=== PATIENT | female | born 1945 | race African-American/Black ===

== ENCOUNTER 2018-01-21 21:29 | Emergency (ER) | payer BC, OTHER ==
[2018-01-21 23:11] LABS: ADD MAN DIFF? NO
[2018-01-21 23:13] LABS: BASO # 0.1 x10^3/uL (0.0-0.2); BASO % 1 % (0-3); EOS % 0 % (0-3); LYMPH # 1.5 x10^3/uL (1.0-4.8); LYMPH % 12 % (24-48); MEAN CORPUSCULAR HEMOGLOBIN 26 pg (25-35); MEAN CORPUSCULAR HGB CONC 33 g/dL (31-37); MEAN CORPUSCULAR VOLUME 78 fL (79-100); MONO # 0.4 x10^3/uL (0.0-1.1); MONO % 4 % (0-9); NEUT # 9.9 x10^3uL (1.8-7.7); NEUT % 83 % (31-73); PLATELET COUNT 383 x10^3/uL (140-400); RED BLOOD COUNT 4.97 x10^6/uL (3.50-5.40); RED CELL DISTRIBUTION WIDTH 14.6 % (11.5-14.5)
[2018-01-21] MEDS ORDERED: 0.9 % SODIUM CHLORIDE 10 ML DISP.SYRIN. IV (23:15)
[2018-01-21 23:26] LABS: ANION GAP 12 (6-14); BLOOD UREA NITROGEN 11 mg/dL (7-20); CALCIUM 9.3 mg/dL (8.5-10.1); CARBON DIOXIDE 25 mmol/L (21-32); CHLORIDE 101 mmol/L (98-107); CREATININE 1.1 mg/dL (0.6-1.0); GFR 59.1; GLUCOSE 176 mg/dL (70-99); POTASSIUM 3.2 mmol/L (3.5-5.1); SODIUM 138 mmol/L (136-145)
[2018-01-21] MEDS: IV NORMAL SALINE 1000ML BAG 500 ML IV (23:26)
[2018-01-21 23:30] LABS: ALBUMIN 3.6 g/dL (3.4-5.0); ALK PHOS 145 U/L (46-116); ALT (SGPT) 11 U/L (14-59); AST (SGOT) 11 U/L (15-37); DIRECT BILIRUBIN < 0.1 mg/dL (0.0-0.2); LIPASE 41 U/L (73-393); TOTAL BILIRUBIN 0.4 mg/dL (0.2-1.0); TOTAL PROTEIN 8.5 g/dL (6.4-8.2)
[2018-01-21] MEDS: IOHEXOL 300 MG/ML 100ML VIAL. IV (23:41)
[2018-01-21] MEDS ORDERED: CONTRAST GIVEN MC (23:45)
[2018-01-22 00:04] LABS: BILIRUBIN,URINE NEGATIVE (NEG); CLARITY,URINE CLOUDY; COLOR,URINE YELLOW; GLUCOSE,URINE NEGATIVE (NEG); NITRITE,URINE NEGATIVE (NEG); PH,URINE 7.5; PROTEIN,URINE NEGATIVE (NEG-TRACE); UROBILINOGEN,URINE 0.2 mg/dL (0.2 mg/dL)
[2018-01-22 00:36] LABS: AMORPHOUS SEDIMENT,UR PRESENT /HPF; BACTERIA,URINE FEW /HPF (0-FEW); RBC,URINE OCC /HPF (0-2); SQUAMOUS EPITHELIAL CELL,UR FEW /LPF
[2018-01-22 00:37] LABS: GRANULAR CASTS,URINE FEW /HPF; HYALINE CASTS, URINE FEW /HPF
== END 2018-01-22 00:51 | disposition home or self-care (01) ==
LOC: ER 01-22 00:51
DX: R10.32 Left lower quadrant pain (principal); R10.31 Right lower quadrant pain; I10 Essential (primary) hypertension; M19.90 Unspecified osteoarthritis, unspecified site; R19.7 Diarrhea, unspecified; Z90.49 Acquired absence of other specified parts of digestive tract; Z88.8 Allergy status to other drugs, medicaments and biological substances; Z91.040 Latex allergy status
CPT/HCPCS: 36415; 74177; 80048; 80076; 81001; 83690; 85025; 99285-25; J7030; Q9967

== ENCOUNTER 2019-05-25 17:01 | Emergency (ER) | payer MEDICARE, OTHER ==
[~2019-05-25] VITALS: Ht 162.6 cm; Wt 68.0 kg
[~2019-05-25 17:01] MED LIST: AMLO2.5T5 PO; ASPI-612 PO; BACL10TA PO; BISO1TAB8 PO; CARV25TA2 PO; CIPR500T PO; CLON1PAT TD; DOXA8TAB59 PO; HYDR-2765 PO; MELO7.5T29 PO; METR500T PO; OXYB5TAB7 PO; POTA10TA31 PO; TRIA1CAP3 PO
--- NOTE | 2019-05-25 17:20 | PHYS DOC ---
Past Medical History Past Medical History: Arthritis, Hypertension Past Surgical History: Cholecystectomy, Other Additional Past Surgical Histo: ectopic Alcohol Use: None Drug Use: None Adult General Chief Complaint Chief Complaint: DIZZY/LIGHT HEADED HPI HPI Patient is a 73-year-old female who presents from surgical Center with report of elevated blood pressure. Patient was scheduled to have surgery on her retina today; however, when they were unable to bring her blood pressure down from the 200s systolic, surgery was canceled and patient was instructed to come to the emergency room to further address the blood pressure. Patient denies any chest pain, shortness of breath or headache. She does indicate that she feels "a little hazy", but was given a dose of Versed along with labetalol while at the surgery center.[] Review of Systems Review of Systems Constitutional: Denies fever or chills [] Eyes: Denies change in visual acuity, redness, or eye pain [] Respiratory: Denies cough or shortness of breath [] Cardiovascular: No additional information not addressed in HPI [] Neurologic: Denies headache, focal weakness or sensory changes [] Current Medications Current Medications Current Medications Medications (Trade) Dose Ordered Sig/Bertin Start Time Stop Time Status Last Admin Dose Admin Clonidine HCl (Catapres) 0.2 mg 1X ONCE 05/25/19 17:30 05/25/19 17:31 DC 05/25/19 17:29 0.2 MG Allergies Allergies Allergies Coded Allergies Type Severity Reaction Last Updated Verified Latex, Natural Rubber Allergy Severe hives 05/08/14 Yes amlodipine Allergy Intermediate Nausea 10/30/15 Yes losartan Adverse Reaction Intermediate Nausea 10/30/15 Yes Physical Exam Physical Exam Constitutional: Well developed, well nourished, no acute distress, non-toxic appearance. [] Eyes: PERRLA, EOMI, conjunctiva normal, no discharge. [] Neck: Normal range of motion, no tenderness, supple, no stridor. [] Cardiovascular: Regular rate and rhythm[] Lungs & Thorax: Bilateral breath sounds clear to auscultation [] Neurologic: Alert and oriented X 3, no focal deficits noted. [] Current Patient Data Vital Signs Vital Signs Date Time Temp Pulse Resp B/P (MAP) Pulse Ox O2 Delivery O2 Flow Rate FiO2 05/25/19 18:37 62 16 100 05/25/19 17:29 221/95 05/25/19 17:20 97.9 Room Air 97.9 EKG EKG [] Radiology/Procedures Radiology/Procedures [] Course & Med Decision Making Course & Med Decision Making Pertinent Labs and Imaging studies reviewed. (See chart for details) [] Dragon Disclaimer Dragon Disclaimer This electronic medical record was generated, in whole or in part, using a voice recognition dictation system. Departure Departure Impression: Primary Impression: Hypertension Disposition: HOME, SELF-CARE Condition: STABLE Referrals: EDI SANDOVAL D.O. (PCP) Patient Instructions: Hypertension Problem Qualifiers Primary Impression: Hypertension Hypertension type: essential hypertension Qualified Codes: I10 - Essential (primary) hypertension DAISY EASLEY Jr. DO May 25, 2019 17:20
[2019-05-25] MEDS ORDERED: cloNIDine HCL 0.1 MG TABLET PO ONE (17:30)
[2019-05-25 18:37] VITALS: BP 147/67
== END 2019-05-25 18:43 | disposition home or self-care (01) ==
LOC: ER 17:01
DX: I10 Essential (primary) hypertension (principal); Z91.040 Latex allergy status; Z88.8 Allergy status to other drugs, medicaments and biological substances
CPT/HCPCS: 99282

== ENCOUNTER 2021-06-26 12:52 | Inpatient (IN) | payer MEDICARE ==
[~2021-06-26] VITALS: Ht 163.8 cm; Wt 68.5 kg
[~2021-06-26 12:52] MED LIST changes: -ASPI-612 PO; +ASPI-886 PO; -CIPR500T PO; +CIPR500T2 PO; +OXYB5TAB10 PO; -OXYB5TAB7 PO
--- NOTE | 2021-06-26 13:23 | ED.ADGEN ---
Past Medical History Past Medical History: Arthritis, Hypertension Past Surgical History: Cholecystectomy, Other Additional Past Surgical Histo: ectopic Smoking Status: Current Every Day Smoker Alcohol Use: None Drug Use: None General Adult EDM: Chief Complaint: NAUSEA/VOMITING/DIARRHEA HPI: HPI: Patient is a 76-year-old female who arrives via EMS after experiencing nausea and vomiting with diarrhea which began at 430 this morning. Patient reports she ate a piece of pizza at midnight and at 430 this morning she had an abrupt onset of nausea with vomiting and has had continued episodes since that time. Patient reports in addition to her vomiting she is also had multiple bouts of diarrhea. Patient states currently she is having some nausea however she is not had any abdominal pain at rest. She does report to fevers at home however she has not taken her temperature. Patient denies any known sick contacts. Additionally she denies any history of chest pain or shortness of air. She further denies any dysuria. She is awake, alert and uncomfortable appearing. Review of Systems: Review of Systems: Constitutional: Reports fever or chills. [] Eyes: Denies change in visual acuity. [] HENT: Denies nasal congestion or sore throat. [] Respiratory: Denies cough or shortness of breath. [] Cardiovascular: Denies chest pain or edema. [] GI: Reports nausea, vomiting and diarrhea. Denies abdominal pain, bloody stools. [] : Denies dysuria. [] Musculoskeletal: Denies back pain or joint pain. [] Integument: Denies rash. [] Neurologic: Denies headache, focal weakness or sensory changes. [] Endocrine: Denies polyuria or polydipsia. [] Lymphatic: Denies swollen glands. [] Psychiatric: Denies depression or anxiety. [] Current Medications: Current Medications Medications (Trade) Dose Ordered Sig/Bertin Start Time Stop Time Status Last Admin Dose Admin Ondansetron HCl (Zofran) 4 mg PRN Q8HRS PRN 06/26/21 15:15 06/27/21 15:14 Sodium Chloride 1,000 ml @ 1,000 mls/hr 1X ONCE 06/26/21 13:30 06/26/21 14:29 DC 06/26/21 13:30 1,000 MLS/HR Allergies: Allergies: Allergies Coded Allergies Type Severity Reaction Last Updated Verified Latex, Natural Rubber Allergy Severe hives 8/26/14 Yes amlodipine Allergy Intermediate Nausea 10/30/15 Yes losartan Adverse Reaction Intermediate Nausea 10/30/15 Yes Physical Exam: PE: Constitutional: Uncomfortable appearing. Well developed, well nourished, non- toxic appearance. [] HENT: Normocephalic, atraumatic, bilateral external ears normal, oropharynx moist, no oral exudates, nose normal. [] Eyes: PERRLA, EOMI, conjunctiva normal, no discharge. [] Neck: Normal range of motion, no tenderness, supple, no stridor. [] Cardiovascular:Heart rate regular rhythm, no murmur [] Lungs & Thorax: Bilateral breath sounds clear to auscultation [] Abdomen: Bowel sounds normal, soft, no tenderness, no masses, no pulsatile masses. [] Skin: Warm, dry, no erythema, no rash. [] Back: No tenderness, no CVA tenderness. [] Extremities: No tenderness, no cyanosis, no clubbing, ROM intact, no edema. [] Neurologic: Alert and oriented X 3, normal motor function, normal sensory funct ion, no focal deficits noted. [] Psychologic: Affect normal, judgement normal, mood normal. [] Current Patient Data: Labs: Laboratory Tests Test 06/26/21 13:38 06/26/21 15:05 White Blood Count 9.4 x10^3/uL (4.0-11.0) Red Blood Count 5.30 x10^6/uL (3.50-5.40) Hemoglobin 14.3 g/dL (12.0-15.5) Hematocrit 43.3 % (36.0-47.0) Mean Corpuscular Volume 82 fL (79-100) Mean Corpuscular Hemoglobin 27 pg (25-35) Mean Corpuscular Hemoglobin Concent 33 g/dL (31-37) Red Cell Distribution Width 15.0 % (11.5-14.5) H Platelet Count 296 x10^3/uL (140-400) Neutrophils (%) (Auto) 86 % (31-73) H Lymphocytes (%) (Auto) 11 % (24-48) L Monocytes (%) (Auto) 2 % (0-9) Eosinophils (%) (Auto) 0 % (0-3) Basophils (%) (Auto) 0 % (0-3) Neutrophils # (Auto) 8.1 x10^3/uL (1.8-7.7) H Lymphocytes # (Auto) 1.1 x10^3/uL (1.0-4.8) Monocytes # (Auto) 0.2 x10^3/uL (0.0-1.1) Eosinophils # (Auto) 0.0 x10^3/uL (0.0-0.7) Basophils # (Auto) 0.0 x10^3/uL (0.0-0.2) Sodium Level 134 mmol/L (136-145) L Potassium Level 3.6 mmol/L (3.5-5.1) Chloride Level 97 mmol/L (98-107) L Carbon Dioxide Level 21 mmol/L (21-32) Anion Gap 16 (6-14) H Blood Urea Nitrogen 12 mg/dL (7-20) Creatinine 1.1 mg/dL (0.6-1.0) H Estimated GFR (Cockcroft-Gault) 58.4 BUN/Creatinine Ratio 11 (6-20) Glucose Level 160 mg/dL (70-99) H Calcium Level 9.3 mg/dL (8.5-10.1) Total Bilirubin 0.9 mg/dL (0.2-1.0) Aspartate Amino Transferase (AST) 16 U/L (15-37) Alanine Aminotransferase (ALT) 19 U/L (14-59) Alkaline Phosphatase 141 U/L (46-116) H Troponin I Quantitative 0.021 ng/mL (0.000-0.055) Total Protein 8.7 g/dL (6.4-8.2) H Albumin 4.1 g/dL (3.4-5.0) Albumin/Globulin Ratio 0.9 (1.0-1.7) L Urine Collection Type Unknown Urine Color Yellow Urine Clarity Clear Urine pH 7.5 (<5.0-8.0) Urine Specific [place] 1.010 (1.000-1.030) Urine Protein 100 mg/dL (NEG-TRACE) Urine Glucose (UA) 100 mg/dL (NEG) Urine Ketones (Stick) 15 mg/dL (NEG) Urine Blood Small (NEG) Urine Nitrite Negative (NEG) Urine Bilirubin Negative (NEG) Urine Urobilinogen Dipstick 0.2 mg/dL (0.2 mg/dL) Urine Leukocyte Esterase Negative (NEG) Urine RBC 20-40 /HPF (0-2) Urine WBC 1-4 /HPF (0-4) Urine Squamous Epithelial Cells Mod /LPF Urine Bacteria 0 /HPF (0-FEW) Urine Mucus Slight /LPF Laboratory Tests 06/26/21 13:38 Laboratory Tests 06/26/21 13:38 Vital Signs: Vital Signs Date Time Temp Pulse Resp B/P (MAP) Pulse Ox O2 Delivery O2 Flow Rate FiO2 06/26/21 13:07 97.9 74 20 211/102 (138) 99 Room Air 97.9 EKG: EKG: There areEKG was obtained at 1353 hrs. reveals a normal sinus rhythm with a ventricular rate of 71 bpm. What appeared to be ST/T wave changes of the anterior leads without elevation that may otherwise denote an acute STEMI. [] Heart Score: C/O Chest Pain: No HEART Score for Chest Pain: HEART Score for Chest Pain Response (Comments) Value History Slighlty/Non-Suspicious 0 ECG Normal 0 Age > 65 2 Risk Factors 1 or 2 Risk Factors 1 Troponin >1-<3x Normal Limit 1 Total 4 Risk Factors: Risk Factors: DM, Current or recent (<one month) smoker, HTN, HLP, family history of CAD, obesity. Risk Scores: Score 0 - 3: 2.5% MACE over next 6 weeks - Discharge Home Score 4 - 6: 20.3% MACE over next 6 weeks - Admit for Clinical Observation Score 7 - 10: 72.7% MACE over next 6 weeks - Early Invasive Strategies Radiology/Procedures: Radiology/Procedures: [] Impression: [facility] [address] [place], [place] [id number] IMAGING REPORT Signed PATIENT: ELVIE CALVO ACCOUNT: [id number] : 1945 LOCATION: ER AGE: 76 SEX: F EXAM STATUS: PRE ER ORD. PHYSICIAN: BERNABE ROLLE DO REASON: Nausea and vomiting PROCEDURE: CHEST AP ONLY AP chest. HISTORY: Nausea and vomiting. AP view was taken of the chest. There is arthritis in both shoulders. Lungs are free of infiltrates. There are calcified granulomas on the right. Heart is normal in size. There is no effusion. IMPRESSION: 1. No acute chest disease. Electronically signed by: Anuj Jang MD (06/26/2021 1:42 PM) [facility] DICTATED and SIGNED BY: ANUJ JANG MD DATE: 06/26/21 [id number] 0 Course & Med Decision Making: Course & Med Decision Making Pertinent Labs and Imaging studies reviewed. (See chart for details) [] Dragon Disclaimer: Dragon Disclaimer: This electronic medical record was generated, in whole or in part, using a voice recognition dictation system. Departure Departure Impression: Primary Impression: Gastroenteritis Additional Impression: Dehydration Disposition: ADMITTED INPATIENT Admitting Physician: HIMS Condition: STABLE Referrals: EDI SANDOVAL D.O. (PCP) Problem Qualifiers BERNABE ROLLE DO Jun 26, 2021 13:22
[2021-06-26] MEDS ORDERED: ONDANSETRON PF 4 MG/2 ML VIAL. IVP ONE (13:30)
[2021-06-26] MEDS ORDERED: IV NORMAL SALINE 1000ML BAG 1,000 ML IV ONE (13:30)
--- NOTE | 2021-06-26 13:44 | RAD ---
AP chest. HISTORY: Nausea and vomiting. AP view was taken of the chest. There is arthritis in both shoulders. L ungs are free of infiltrates. There are calcified granulomas on the right. Heart is normal in size. T here is no effusion. IMPRESSION: 1. No acute chest disease. Electronically signed by: Anuj Jang MD (06/26/2021 1:42 PM) [facility]
[2021-06-26 13:55] LABS: BASO % 0 % (0-3); EOS % 0 % (0-3); HEMATOCRIT 43.3 % (36.0-47.0); HEMOGLOBIN 14.3 g/dL (12.0-15.5); LYMPH # 1.1 x10^3/uL (1.0-4.8); LYMPH % 11 % (24-48); MEAN CORPUSCULAR HEMOGLOBIN 27 pg (25-35); MEAN CORPUSCULAR HGB CONC 33 g/dL (31-37); MEAN CORPUSCULAR VOLUME 82 fL (79-100); MONO # 0.2 x10^3/uL (0.0-1.1); MONO % 2 % (0-9); NEUT # 8.1 x10^3/uL (1.8-7.7); NEUT % 86 % (31-73); PLATELET COUNT 296 x10^3/uL (140-400); WHITE BLOOD COUNT 9.4 x10^3/uL (4.0-11.0)
[2021-06-26 14:00] LABS: CALCIUM 9.3 mg/dL (8.5-10.1); CREATININE 1.1 mg/dL (0.6-1.0); GFR 58.4; POTASSIUM 3.6 mmol/L (3.5-5.1)
[2021-06-26 14:06] LABS: ALBUMIN 4.1 g/dL (3.4-5.0); ALBUMIN/GLOBULIN RATIO 0.9 (1.0-1.7); TOTAL BILIRUBIN 0.9 mg/dL (0.2-1.0); TOTAL PROTEIN 8.7 g/dL (6.4-8.2)
--- NOTE | 2021-06-26 14:29 | EKG ---
[facility] [address] [place] [address] Test Date: 2021-06-26 Test Time: 13:53:59 Pat Name: ELVIE CALVO Department: Room: Gender: F [employer]: : 1945 Requested By: BERNABE ROLLE Order Number: [id number] Reading MD: Tevin Sales Measurements Intervals [place] Rate: 71 P: 90 AL: 160 QRS: 48 QRSD: 100 T: 65 QT: 414 QTc: 455 Interpretive Statements SINUS RHYTHM ST & T ABNORMALITY, CONSIDER ANTEROLATERAL ISCHEMIA OR LEFT VENTRICULAR STRAIN T ABNORMALITY IN ANTERIOR LEADS Electronically Signed On 06-26-2021 15:46:19 CDT by Tevin Sales
[2021-06-26] MEDS ORDERED: ONDANSETRON PF 4 MG/2 ML VIAL. IVP PRN (15:15)
[2021-06-26 15:19] LABS: BILIRUBIN,URINE NEGATIVE (NEG); CLARITY,URINE CLEAR; COLOR,URINE YELLOW; NITRITE,URINE NEGATIVE (NEG); PH,URINE 7.5 (<5.0-8.0); PROTEIN,URINE 100 mg/dL (NEG-TRACE); UROBILINOGEN,URINE 0.2 mg/dL (0.2 mg/dL)
[2021-06-26 15:25] LABS: BACTERIA,URINE 0 /HPF (0-FEW); RBC,URINE 20-40 /HPF (0-2)
[2021-06-26] MEDS ORDERED: hydrALAZINE 20 MG/ML VIAL. IVP PRN (16:30)
[2021-06-26] MEDS ORDERED: hydrALAZINE 20 MG/ML VIAL. ONE (16:30)
[2021-06-26 17:20] VITALS: BP 239/107
[2021-06-26] MEDS ORDERED: HYDR12.58 PO (17:48)
[2021-06-26] MEDS ORDERED: ATOR20TA58 PO (17:48)
[2021-06-26] MEDS ORDERED: DICL75TA PO (17:48)
[2021-06-26] MEDS ORDERED: AMLO-187 PO (17:48)
[2021-06-26] MEDS ORDERED: METH-184 PO (17:48)
[2021-06-26] MEDS ORDERED: ENALAPRILAT 2.5 MG/2 ML VIAL. IVP SCH (18:00)
[2021-06-26] MEDS ORDERED: METOPROLOL IV PUSH 5 MG/5 ML VIAL. IVP ONE (18:00)
[2021-06-26] MEDS ORDERED: ENALAPRILAT 2.5 MG/2 ML VIAL. IVP PRN (18:15)
[2021-06-26 19:00] VITALS: BP 212/106
[2021-06-26] MEDS ORDERED: POTASSIUM CL 20MEQ D5-0.45NACL 1,000 ML IV SCH (20:30)
--- NOTE | 2021-06-26 20:33 | PDOC1 ---
History and Physical Date of Admission Date of Admission DATE: 06/26/21 TIME: 20:29 Identification/Chief Complaint Chief Complaint N an V Source Source: Chart review, Patient History of Present Illness History of Present Illness Ms. Rodriguez is a 76-year-old female admit form ER for Nausea and vomiting and diarrhea. She reports acute symptoms began at 430 this morning, and that she vomited her meds from this AM. She at leftover [employer] pizza at bedtime the ngiht before and hasnt been able to eat anyhting today. she feels a little better after Nausea meds and IV fluid and would like to try jello. no current pain Patient denies any known sick contacts. she has been vaccinated for COVID Past Medical History Cardiovascular: HTN Pulmonary: No pertinent hx CENTRAL NERVOUS SYSTEM: Other GI: No pertinent hx Heme/Onc: No pertinent hx Hepatobiliary: No pertinent hx Psych: No pertinent hx Musculoskeletal: Osteoarthritis Rheumatologic: No pertinent hx Infectious disease: No pertinent hx Renal/: No pertinent hx, Urinary Incontinence Endocrine: No pertinent hx Past Surgical History Past Surgical History: Other Family History Family History: No Significant Social History Smoke: No ALCOHOL: none Drugs: None Current Problem List Problem List Problems Medical Problems: (1) Dehydration Status: Acute (2) Gastroenteritis Status: Acute Current Medications Current Medications Current Medications Ondansetron HCl (Zofran) 4 mg 1X ONCE IVP Last administered on 06/26/21at 14:01; Start 06/26/21 at 13:30; Stop 06/26/21 at 13:31; Status DC Sodium Chloride 1,000 ml @ 1,000 mls/hr 1X ONCE IV Last administered on 06/26/21at 13:30; Start 06/26/21 at 13:30; Stop 06/26/21 at 14:29; Status DC Ondansetron HCl (Zofran) 4 mg PRN Q8HRS PRN IVP NAUSEA/VOMITING; Start 06/26/21 at 15:15; Stop 06/27/21 at 15:14 Hydralazine HCl (Apresoline Inj) 10 mg PRN Q6HRS PRN IVP ELEVATED BP, SEE COMMENTS Last administered on 06/26/21at 16:37; Start 06/26/21 at 16:30 Hydralazine HCl (Apresoline Inj) 20 mg STK-MED ONCE .ROUTE ; Start 06/26/21 at 16:30; Stop 06/26/21 at 16:31; Status DC Enalaprilat (Vasotec Inj) 2.5 mg Q6HRS IVP ; Start 06/26/21 at 18:00; Stop 06/26/21 at 18:03; Status DC Metoprolol Tartrate (Lopressor Vial) 5 mg 1X ONCE IVP Last administered on 06/26/21at 18:09; Start 06/26/21 at 18:00; Stop 06/26/21 at 18:01; Status DC Enalaprilat (Vasotec Inj) 2.5 mg PRN Q6HRS PRN IVP HYPERTENSION; Start 1 at 18:15 Lorazepam (Ativan Inj) 1 mg PRN Q4HRS PRN IVP nausea; Start 06/26/21 at 18:45 Active Scripts Active Reported Hydrochlorothiazide Tablet (Hydrochlorothiazide) 12.5 Mg Tablet 25 Mg PO DAILY Diclofenac Sodium 75 Mg Tablet.dr 1 Tab PO BID Amlodipine Besylate 10 Mg Tablet 10 Mg PO DAILY Tapazole (Methimazole) 10 Mg Tablet 15 Mg PO DAILY Atorvastatin Calcium 20 Mg Tablet 1 Tab PO DAILY Carvedilol 25 Mg Tablet 25 Mg PO BIDWMEALS Aspirin Ec (Aspirin) 81 Mg Tablet.dr 1 Tab PO DAILY Doxazosin Mesylate 8 Mg Tablet 1 Tab PO DAILY Allergies Allergies: Coded Allergies: Latex, Natural Rubber (Verified Allergy, Severe, hives, 05/08/14) amlodipine (Verified Allergy, Intermediate, Nausea, 10/30/15) losartan (Verified Adverse Reaction, Intermediate, Nausea, 10/30/15) ROS General: YES: Chills; No: Night Sweats, Fatigue, Malaise, Appetite, Other PSYCHOLOGICAL ROS: No: Anxiety, Behavioral Disorder, Concentration difficultie, Decreased libido, Depression, Disorientation, Hallucinations, Hostility, Irritablity, Memory difficulties, Mood Swings, Obsessive thoughts, Physical abuse, Sexual abuse, Sleep disturbances, Suicidal ideation, Other Eyes: No Blurry vision, No Decreased vision, No Double vision, No Dry eyes, No Excessive tearing, No Eye Pain, No Itchy Eyes, No Loss of vision, No Photophobia, No Scotomata, No Uses contacts, No Uses glasses, No Other HEENT: No: Heacaches, Visual Changes, Hearing change, Nasal congestion, Nasal discharge, Oral lesions, Sinus pain, Sore Throat, Epistaxis, Sneezing, Snoring, Tinnitus, Vertigo, Vocal changes, Other ENDOCRINE: No: Breast Changes, Galactorrhea, Hair Pattern Changes, Hot Flashes, Malaise/lethargy, Mood Swings, Palpitations, Polydipsia/polyuria, Skin Changes, Temperature Intolerance, Unexpected Weight Changes, Other Breast: No New/Changing Breast Lumps, No Nipple changes, No Nipple discharge, No Other Respiratory: No: Cough, Hemoptysis, Orthopnea, Pleuritic Pain, Shortness of breath, SOB with excertion, Sputum Changes, Stridor, Tachypnea, Wheezing, Other Cardiovascular: No Chest Pain, No Palpitations, No Orthopnea, No Paroxysmal Noc. Dyspnea, No Edema, No Lt Headedness, No Other Gastrointestinal: Yes Nausea, Yes Vomiting, Yes Abdominal Pain, Yes Diarrhea Genitourinary: No Dysuria, No Frequency, No Incontinence, No Hematuria, No Retention, No Discharge, No Urgency, No Pain, No Flank Pain, No Other, No , No , No , No , No , No , No Musculoskeletal: No Gait Disturbance, No Joint Pain, No Joint Stiffness, No Joint Swelling, No Muscle Pain, No Muscular Weakness, No Pain In:, No Swelling In:, No Other Neurological: No Behavorial Changes, No Bowel/Bladder ControlChng, No Confusion, No Dizziness, No Gait Disturbance, No Headaches, No Impaired Coord/balance, No Memory Loss, No Numbness/Tingling, No Seizures, No Speech Problems, No Tremors, No Visual Changes, No Weakness, No Other Skin: Yes Dry Skin; No Eczema, No Hair Changes, No Lumps, No Mole Changes, No Mottling, No Nail Changes, No Pruritus, No Rash, No Skin Lesion Changes, No Other, No Acne Physical Exam General: Alert, Oriented X3, Cooperative, mild distress HEENT: Atraumatic Heart: S1S2 Abdomen: Normal bowel sounds, Soft, No tenderness, No masses, Other Rectal Exam: not examined Extremities: No clubbing, No edema Skin: No rashes, No significant lesion Neuro: Normal speech, Sensation intact, Cranial nerves 3-12 NL Vitals Vitals Vital Signs Date Time Temp Pulse Resp B/P (MAP) Pulse Ox O2 Delivery O2 Flow Rate FiO2 06/26/21 18:09 75 239/107 06/26/21 17:20 98.3 20 98 Room Air 98.3 Labs Labs Laboratory Tests Test 06/26/21 13:38 06/26/21 15:05 White Blood Count 9.4 x10^3/uL (4.0-11.0) Red Blood Count 5.30 x10^6/uL (3.50-5.40) Hemoglobin 14.3 g/dL (12.0-15.5) Hematocrit 43.3 % (36.0-47.0) Mean Corpuscular Volume 82 fL (79-100) Mean Corpuscular Hemoglobin 27 pg (25-35) Mean Corpuscular Hemoglobin Concent 33 g/dL (31-37) Red Cell Distribution Width 15.0 % (11.5-14.5) Platelet Count 296 x10^3/uL (140-400) Neutrophils (%) (Auto) 86 % (31-73) Lymphocytes (%) (Auto) 11 % (24-48) Monocytes (%) (Auto) 2 % (0-9) Eosinophils (%) (Auto) 0 % (0-3) Basophils (%) (Auto) 0 % (0-3) Neutrophils # (Auto) 8.1 x10^3/uL (1.8-7.7) Lymphocytes # (Auto) 1.1 x10^3/uL (1.0-4.8) Monocytes # (Auto) 0.2 x10^3/uL (0.0-1.1) Eosinophils # (Auto) 0.0 x10^3/uL (0.0-0.7) Basophils # (Auto) 0.0 x10^3/uL (0.0-0.2) Sodium Level 134 mmol/L (136-145) Potassium Level 3.6 mmol/L (3.5-5.1) Chloride Level 97 mmol/L (98-107) Carbon Dioxide Level 21 mmol/L (21-32) Anion Gap 16 (6-14) Blood Urea Nitrogen 12 mg/dL (7-20) Creatinine 1.1 mg/dL (0.6-1.0) Estimated GFR (Cockcroft-Gault) 58.4 BUN/Creatinine Ratio 11 (6-20) Glucose Level 160 mg/dL (70-99) Calcium Level 9.3 mg/dL (8.5-10.1) Total Bilirubin 0.9 mg/dL (0.2-1.0) Aspartate Amino Transf (AST/SGOT) 16 U/L (15-37) Alanine Aminotransferase (ALT/SGPT) 19 U/L (14-59) Alkaline Phosphatase 141 U/L (46-116) Troponin I Quantitative 0.021 ng/mL (0.000-0.055) Total Protein 8.7 g/dL (6.4-8.2) Albumin 4.1 g/dL (3.4-5.0) Albumin/Globulin Ratio 0.9 (1.0-1.7) Urine Collection Type Unknown Urine Color Yellow Urine Clarity Clear Urine pH 7.5 (<5.0-8.0) Urine Specific [place] 1.010 (1.000-1.030) Urine Protein 100 mg/dL (NEG-TRACE) Urine Glucose (UA) 100 mg/dL (NEG) Urine Ketones (Stick) 15 mg/dL (NEG) Urine Blood Small (NEG) Urine Nitrite Negative (NEG) Urine Bilirubin Negative (NEG) Urine Urobilinogen Dipstick 0.2 mg/dL (0.2 mg/dL) Urine Leukocyte Esterase Negative (NEG) Urine RBC 20-40 /HPF (0-2) Urine WBC 1-4 /HPF (0-4) Urine Squamous Epithelial Cells Mod /LPF Urine Bacteria 0 /HPF (0-FEW) Urine Mucus Slight /LPF SARS-CoV-2 Antigen (Rapid) Negative (NEGATIVE) Laboratory Tests Test 06/26/21 13:38 06/26/21 15:05 White Blood Count 9.4 x10^3/uL (4.0-11.0) Red Blood Count 5.30 x10^6/uL (3.50-5.40) Hemoglobin 14.3 g/dL (12.0-15.5) Hematocrit 43.3 % (36.0-47.0) Mean Corpuscular Volume 82 fL (79-100) Mean Corpuscular Hemoglobin 27 pg (25-35) Mean Corpuscular Hemoglobin Concent 33 g/dL (31-37) Red Cell Distribution Width 15.0 % (11.5-14.5) Platelet Count 296 x10^3/uL (140-400) Neutrophils (%) (Auto) 86 % (31-73) Lymphocytes (%) (Auto) 11 % (24-48) Monocytes (%) (Auto) 2 % (0-9) Eosinophils (%) (Auto) 0 % (0-3) Basophils (%) (Auto) 0 % (0-3) Neutrophils # (Auto) 8.1 x10^3/uL (1.8-7.7) Lymphocytes # (Auto) 1.1 x10^3/uL (1.0-4.8) Monocytes # (Auto) 0.2 x10^3/uL (0.0-1.1) Eosinophils # (Auto) 0.0 x10^3/uL (0.0-0.7) Basophils # (Auto) 0.0 x10^3/uL (0.0-0.2) Sodium Level 134 mmol/L (136-145) Potassium Level 3.6 mmol/L (3.5-5.1) Chloride Level 97 mmol/L (98-107) Carbon Dioxide Level 21 mmol/L (21-32) Anion Gap 16 (6-14) Blood Urea Nitrogen 12 mg/dL (7-20) Creatinine 1.1 mg/dL (0.6-1.0) Estimated GFR (Cockcroft-Gault) 58.4 BUN/Creatinine Ratio 11 (6-20) Glucose Level 160 mg/dL (70-99) Calcium Level 9.3 mg/dL (8.5-10.1) Total Bilirubin 0.9 mg/dL (0.2-1.0) Aspartate Amino Transf (AST/SGOT) 16 U/L (15-37) Alanine Aminotransferase (ALT/SGPT) 19 U/L (14-59) Alkaline Phosphatase 141 U/L (46-116) Troponin I Quantitative 0.021 ng/mL (0.000-0.055) Total Protein 8.7 g/dL (6.4-8.2) Albumin 4.1 g/dL (3.4-5.0) Albumin/Globulin Ratio 0.9 (1.0-1.7) Urine Collection Type Unknown Urine Color Yellow Urine Clarity Clear Urine pH 7.5 (<5.0-8.0) Urine Specific [place] 1.010 (1.000-1.030) Urine Protein 100 mg/dL (NEG-TRACE) Urine Glucose (UA) 100 mg/dL (NEG) Urine Ketones (Stick) 15 mg/dL (NEG) Urine Blood Small (NEG) Urine Nitrite Negative (NEG) Urine Bilirubin Negative (NEG) Urine Urobilinogen Dipstick 0.2 mg/dL (0.2 mg/dL) Urine Leukocyte Esterase Negative (NEG) Urine RBC 20-40 /HPF (0-2) Urine WBC 1-4 /HPF (0-4) Urine Squamous Epithelial Cells Mod /LPF Urine Bacteria 0 /HPF (0-FEW) Urine Mucus Slight /LPF SARS-CoV-2 Antigen (Rapid) Negative (NEGATIVE) VTE Prophylaxis Ordered VTE Prophylaxis Devices: No VTE Pharmacological Prophylaxi: No Assessment/Plan Assessment/Plan nausea and vomiting and diarrhea, IV fluid support and 2 nausea IV meds ordered acute viral enteritis, or possible food poisoning from [employer] accelerated htn, vomited her home meds, replace IV for PO, try to get control Justifications for Admission Other Justification FIDEL NGUYEN MD Jun 26, 2021 20:33
[2021-06-26] MEDS: METOPROLOL IV PUSH 5 MG/5 ML VIAL. IVP SCH ×2 (23:03→23:54)
[2021-06-26 23:12] VITALS: BP 207/107
[2021-06-27] VITALS (7 sets, daily range): BP systolic 93–199; BP diastolic 42–94
[2021-06-27] MEDS: METOPROLOL IV PUSH 5 MG/5 ML VIAL. IVP SCH ×2 (05:41→12:12)
--- NOTE | 2021-06-27 07:36 | PDOC ---
[employer] PROGRESS NOTE Date of Service DOS: DATE: 06/27/21 TIME: 07:34 Chief Complaint Chief Complaint A/P: nausea and vomiting and diarrhea, IV fluid support and 2 nausea IV meds ordered acute viral enteritis, or possible food poisoning from [employer] accelerated htn, vomited her home meds, replace IV for PO, try to get control GUSTAVO - likely vasomotor nephropathy from dehydration, BP shifts. Will give additional IVF, hydrate, repeat BMP in AM Elevated troponin - likely demand ischemia, however with her atypical symptoms will have cardiac eval FEN - liquid diet PPX - heparin FULL CODE Dispo - inpatient History of Present Illness History of Present Illness Ms. Rodriguez is a 76-year-old female w/ PMHx HTN who is admitted from ER for Nausea and vomiting and diarrhea. She reports acute symptoms began at 430 on 06/26/2021 in the morning, and that she vomited her meds She at leftover [employer] pia at bedtime the night before and hasn't been able to eat anything since. Patient denies any known sick contacts. She has been vaccinated for COVID. BP was elevated with systolic over 210 mmHg was given IV Vasotec and IV metoprolol substitute for her 25 mg carvedilol. She felt a little better after Nausea meds and IV fluid and tried jello but had further nausea. BP low this morning. No further vomiting but not feeling any better. Repeat CR 1.7. Vitals/I&O Vitals/I&O: Vital Signs Date Time Temp Pulse Resp B/P (MAP) Pulse Ox O2 Delivery O2 Flow Rate FiO2 06/27/21 05:41 103 99/54 06/27/21 03:24 99.5 18 97 Room Air 99.5 I & O 06/26/21 06/26/21 06/27/21 15:00 23:00 07:00 Intake Total 240 ml 200 ml Balance 240 ml 200 ml Physical Exam General: Alert, Oriented X3, Cooperative, mild distress Abdomen: Normal bowel sounds, Soft, No tenderness, No masses, Other Extremities: No clubbing, No edema Skin: No rashes, No significant lesion Labs Labs: Laboratory Tests Test 06/26/21 13:38 06/26/21 15:05 White Blood Count 9.4 x10^3/uL (4.0-11.0) Red Blood Count 5.30 x10^6/uL (3.50-5.40) Hemoglobin 14.3 g/dL (12.0-15.5) Hematocrit 43.3 % (36.0-47.0) Mean Corpuscular Volume 82 fL (79-100) Mean Corpuscular Hemoglobin 27 pg (25-35) Mean Corpuscular Hemoglobin Concent 33 g/dL (31-37) Red Cell Distribution Width 15.0 % (11.5-14.5) Platelet Count 296 x10^3/uL (140-400) Neutrophils (%) (Auto) 86 % (31-73) Lymphocytes (%) (Auto) 11 % (24-48) Monocytes (%) (Auto) 2 % (0-9) Eosinophils (%) (Auto) 0 % (0-3) Basophils (%) (Auto) 0 % (0-3) Neutrophils # (Auto) 8.1 x10^3/uL (1.8-7.7) Lymphocytes # (Auto) 1.1 x10^3/uL (1.0-4.8) Monocytes # (Auto) 0.2 x10^3/uL (0.0-1.1) Eosinophils # (Auto) 0.0 x10^3/uL (0.0-0.7) Basophils # (Auto) 0.0 x10^3/uL (0.0-0.2) Sodium Level 134 mmol/L (136-145) Potassium Level 3.6 mmol/L (3.5-5.1) Chloride Level 97 mmol/L (98-107) Carbon Dioxide Level 21 mmol/L (21-32) Anion Gap 16 (6-14) Blood Urea Nitrogen 12 mg/dL (7-20) Creatinine 1.1 mg/dL (0.6-1.0) Estimated GFR (Cockcroft-Gault) 58.4 BUN/Creatinine Ratio 11 (6-20) Glucose Level 160 mg/dL (70-99) Calcium Level 9.3 mg/dL (8.5-10.1) Total Bilirubin 0.9 mg/dL (0.2-1.0) Aspartate Amino Transf (AST/SGOT) 16 U/L (15-37) Alanine Aminotransferase (ALT/SGPT) 19 U/L (14-59) Alkaline Phosphatase 141 U/L (46-116) Troponin I Quantitative 0.021 ng/mL (0.000-0.055) Total Protein 8.7 g/dL (6.4-8.2) Albumin 4.1 g/dL (3.4-5.0) Albumin/Globulin Ratio 0.9 (1.0-1.7) Urine Collection Type Unknown Urine Color Yellow Urine Clarity Clear Urine pH 7.5 (<5.0-8.0) Urine Specific [place] 1.010 (1.000-1.030) Urine Protein 100 mg/dL (NEG-TRACE) Urine Glucose (UA) 100 mg/dL (NEG) Urine Ketones (Stick) 15 mg/dL (NEG) Urine Blood Small (NEG) Urine Nitrite Negative (NEG) Urine Bilirubin Negative (NEG) Urine Urobilinogen Dipstick 0.2 mg/dL (0.2 mg/dL) Urine Leukocyte Esterase Negative (NEG) Urine RBC 20-40 /HPF (0-2) Urine WBC 1-4 /HPF (0-4) Urine Squamous Epithelial Cells Mod /LPF Urine Bacteria 0 /HPF (0-FEW) Urine Mucus Slight /LPF SARS-CoV-2 Antigen (Rapid) Negative (NEGATIVE) Assessment and Plan Assessmemt and Plan Problems Medical Problems: (1) Dehydration Status: Acute (2) Gastroenteritis Status: Acute Comment Review of Relevant I have reviewed the following items prema (where applicable) has been applied. Medications: Current Medications Medications (Trade) Dose Ordered Sig/Bertin Route PRN Reason Start Time Stop Time Status Last Admin Dose Admin Ondansetron HCl (Zofran) 4 mg 1X ONCE IVP 06/26/21 13:30 06/26/21 13:31 DC 06/26/21 14:01 Sodium Chloride 1,000 ml @ 1,000 mls/hr 1X ONCE IV 06/26/21 13:30 06/26/21 14:29 DC 06/26/21 13:30 Hydralazine HCl (Apresoline Inj) 10 mg PRN Q6HRS PRN IVP ELEVATED BP, SEE COMMENTS 06/26/21 16:30 06/26/21 16:37 Metoprolol Tartrate (Lopressor Vial) 5 mg 1X ONCE IVP 06/26/21 18:00 06/26/21 18:01 DC 06/26/21 18:09 Enalaprilat (Vasotec Inj) 2.5 mg PRN Q6HRS PRN IVP HYPERTENSION 06/26/21 18:15 06/26/21 22:59 Lorazepam (Ativan Inj) 1 mg PRN Q4HRS PRN IVP nausea 06/26/21 18:45 06/26/21 22:59 Metoprolol Tartrate (Lopressor Vial) 5 mg Q6HRS IVP 06/26/21 20:15 06/26/21 23:03 Potassium Chloride/Dextrose/ Sod Cl 1,000 ml @ 80 mls/hr [id number] IV 06/26/21 20:30 06/27/21 08:59 06/26/21 22:58 Justifications for Admission Other Justification EDDY MYERS MD Jun 27, 2021 07:36
--- NOTE | 2021-06-27 09:25 | PDOC2 ---
GI CONSULT Date of Service: DATE: 06/27/21 TIME: 09:25 Reason For Consult: n/v/d HPI: HPI: Pleasant 76 y/o female admitted through ER. Went to [facility] Wednesday night and ate leftover/reheated pizza around midnight when she returned home. Awoke at 4:30 a.m. with vomiting which persisted for 5-6 hours. Associated w/ abdominal soreness ("just all over"). No diarrhea. Her neighbor thought it would be safest to get checked out at the hospital. Noted with elevated blood pressure. Feels better now and would like some chicken noodle soup and jello. Denies reflux/heartburn, dysphagia, chronic n/v or abd pain, hematemesis, constipation, hematochezia, melena, or weight loss. Office notes indicate h/o indigestion. EGD and colonoscopy 11/2010 showed H. pylori gastritis and intestinal metaplasia and 3mm adenomatous colon polyp. Notes indicate she felt better after H. pylori treatment. Pt reports she had an EGD and colonoscopy about 5 years ago "in [place]" - says her PCP keeps track of all that. Chart lists h/o cholecystectomy - she does not recall surgery but does recall h/o gallstones. Denies liver, pancreas, and PUD history. She "takes a lot of medicines" - summary list includes ASA and Tapazole. Vaccinated for COVID. PMH: PMH: HTN, arthritis, hyperthyroidism left knee surgery, ?cholecystectomy, thyroid biopsy FH: Family History: Cancer (maternal aunt - colon) Social History: Smoke: <1 pack per day ALCOHOL: rare Drugs: None ROS: GEN: Denies fevers, chills, sweats HEENT: Denies blurred vision, sore throat CV: Denies chest pain RESP: Denies shortness of air, cough GI: Per HPI : Denies hematuria, dysuria ENDO: Denies weight changes NEURO: Denies confusion, dizziness MSK: Denies weakness, joint pain/swelling SKIN: Denies jaundice, pruritus Vitals: Vitals: Vital Signs Date Time Temp Pulse Resp B/P (MAP) Pulse Ox O2 Delivery O2 Flow Rate FiO2 06/27/21 08:00 Room Air 06/27/21 07:00 99.1 98 17 142/80 (100) 98 99.1 Labs: Labs: Laboratory Tests Test 06/26/21 13:38 06/26/21 15:05 White Blood Count 9.4 x10^3/uL (4.0-11.0) Red Blood Count 5.30 x10^6/uL (3.50-5.40) Hemoglobin 14.3 g/dL (12.0-15.5) Hematocrit 43.3 % (36.0-47.0) Mean Corpuscular Volume 82 fL (79-100) Mean Corpuscular Hemoglobin 27 pg (25-35) Mean Corpuscular Hemoglobin Concent 33 g/dL (31-37) Red Cell Distribution Width 15.0 % (11.5-14.5) Platelet Count 296 x10^3/uL (140-400) Neutrophils (%) (Auto) 86 % (31-73) Lymphocytes (%) (Auto) 11 % (24-48) Monocytes (%) (Auto) 2 % (0-9) Eosinophils (%) (Auto) 0 % (0-3) Basophils (%) (Auto) 0 % (0-3) Neutrophils # (Auto) 8.1 x10^3/uL (1.8-7.7) Lymphocytes # (Auto) 1.1 x10^3/uL (1.0-4.8) Monocytes # (Auto) 0.2 x10^3/uL (0.0-1.1) Eosinophils # (Auto) 0.0 x10^3/uL (0.0-0.7) Basophils # (Auto) 0.0 x10^3/uL (0.0-0.2) Sodium Level 134 mmol/L (136-145) Potassium Level 3.6 mmol/L (3.5-5.1) Chloride Level 97 mmol/L (98-107) Carbon Dioxide Level 21 mmol/L (21-32) Anion Gap 16 (6-14) Blood Urea Nitrogen 12 mg/dL (7-20) Creatinine 1.1 mg/dL (0.6-1.0) Estimated GFR (Cockcroft-Gault) 58.4 BUN/Creatinine Ratio 11 (6-20) Glucose Level 160 mg/dL (70-99) Calcium Level 9.3 mg/dL (8.5-10.1) Total Bilirubin 0.9 mg/dL (0.2-1.0) Aspartate Amino Transf (AST/SGOT) 16 U/L (15-37) Alanine Aminotransferase (ALT/SGPT) 19 U/L (14-59) Alkaline Phosphatase 141 U/L (46-116) Troponin I Quantitative 0.021 ng/mL (0.000-0.055) Total Protein 8.7 g/dL (6.4-8.2) Albumin 4.1 g/dL (3.4-5.0) Albumin/Globulin Ratio 0.9 (1.0-1.7) Urine Collection Type Unknown Urine Color Yellow Urine Clarity Clear Urine pH 7.5 (<5.0-8.0) Urine Specific [place] 1.010 (1.000-1.030) Urine Protein 100 mg/dL (NEG-TRACE) Urine Glucose (UA) 100 mg/dL (NEG) Urine Ketones (Stick) 15 mg/dL (NEG) Urine Blood Small (NEG) Urine Nitrite Negative (NEG) Urine Bilirubin Negative (NEG) Urine Urobilinogen Dipstick 0.2 mg/dL (0.2 mg/dL) Urine Leukocyte Esterase Negative (NEG) Urine RBC 20-40 /HPF (0-2) Urine WBC 1-4 /HPF (0-4) Urine Squamous Epithelial Cells Mod /LPF Urine Bacteria 0 /HPF (0-FEW) Urine Mucus Slight /LPF SARS-CoV-2 Antigen (Rapid) Negative (NEGATIVE) Allergies: Coded Allergies: Latex, Natural Rubber (Verified Allergy, Severe, hives, 05/08/14) amlodipine (Verified Adverse Reaction, Intermediate, Nausea, 06/27/21) losartan (Verified Adverse Reaction, Intermediate, Nausea, 10/30/15) Medications: Current Medications Medications (Trade) Dose Ordered Sig/Bertin Route PRN Reason Start Time Stop Time Status Last Admin Dose Admin Ondansetron HCl (Zofran) 4 mg 1X ONCE IVP 06/26/21 13:30 06/26/21 13:31 DC 06/26/21 14:01 Sodium Chloride 1,000 ml @ 1,000 mls/hr 1X ONCE IV 06/26/21 13:30 06/26/21 14:29 DC 06/26/21 13:30 Hydralazine HCl (Apresoline Inj) 10 mg PRN Q6HRS PRN IVP ELEVATED BP, SEE COMMENTS 06/26/21 16:30 06/26/21 16:37 Metoprolol Tartrate (Lopressor Vial) 5 mg 1X ONCE IVP 06/26/21 18:00 06/26/21 18:01 DC 06/26/21 18:09 Enalaprilat (Vasotec Inj) 2.5 mg PRN Q6HRS PRN IVP HYPERTENSION 06/26/21 18:15 06/26/21 22:59 Lorazepam (Ativan Inj) 1 mg PRN Q4HRS PRN IVP nausea 06/26/21 18:45 06/27/21 07:34 DC 06/26/21 22:59 Metoprolol Tartrate (Lopressor Vial) 5 mg Q6HRS IVP 06/26/21 20:15 06/26/21 23:03 Potassium Chloride/Dextrose/ Sod Cl 1,000 ml @ 80 mls/hr [id number] IV 06/26/21 20:30 06/27/21 08:59 DC 06/26/21 22:58 Imaging: Imaging: CXR 06/26 IMPRESSION: 1. No acute chest disease. PE: GEN: NAD HEENT: Atraumatic, PERRL LUNGS: CTAB HEART: RRR ABD: NABS, S/ND/NT EXTREMITY: No edema SKIN: No rashes, no jaundice NEURO/PSYCH: A & O 3 A/P: A/P: N/v, abd discomfort, HTN - improved H/o H. pylori - took treatment CRC screen, h/o adenomatous polyp - can document colonoscopy from 2010 - ?done since Rapid COVID negative -- ?food poisoning - quick improvement of symptoms Okay to advance diet per GI. KRISTA SCRUGGS Jun 27, 2021 09:25
[2021-06-27 10:34] LABS: CALCIUM 8.9 mg/dL (8.5-10.1); CREATININE 1.7 mg/dL (0.6-1.0); GFR 35.4; POTASSIUM 3.5 mmol/L (3.5-5.1)
--- NOTE | 2021-06-27 10:43 | NUR ---
SW following. Discussed with RN, pt from home alone, room air, full liquid diet, rapid COVID-19 negative. GI following. Pt reports feeling better. RN advised no SW needs at this time, anticipates possible discharge home today. SW will continue to follow.
[2021-06-27] MEDS ORDERED: ONDANSETRON PF 4 MG/2 ML VIAL. IVP PRN (11:45)
[2021-06-27] MEDS ORDERED: IV RINGERS,LACTATED 1000ML 1,000 ML IV ONE (11:45)
--- NOTE | 2021-06-27 12:00 | NUR ---
Cardiology consult ordered for elevated trop. Pt also receiving scheduled IV metoprolol. Tele monitor applied per protocol. SR noted at this time. Will continue to monitor.
--- NOTE | 2021-06-27 13:41 | PDOC2 ---
MARS BUSTAMANTE DERMATOLOGY NURSE 06/27/21 1341: CARDIAC CONSULT DATE OF CONSULT Date of Consult DATE: 06/27/21 TIME: 13:28 REASON FOR CONSULT Reason for Consult: elevated troponin, n/v REFERRING PHYSICIAN Referring Physician: Edith SOURCE Source: Chart review, Patient HISTORY OF PRESENT ILLNESS HISTORY OF PRESENT ILLNESS This is a 75 yo female admitted for complains of nausea, vomiting and diarrhea after eating pizza. she is negative so far for covid-19. Denies any chest pain, palpitations. No dizziness. No exertional CP nor ALVAREZ. No hx of CAD, VTE or arrhythmias. Her GI symptoms have improved. PAST MEDICAL HISTORY Past Medical History Cardiovascular: HTN, HLP Pulmonary: No pertinent hx CENTRAL NERVOUS SYSTEM: Other (No pertinent history) GI: No pertinent hx Heme/Onc: No pertinent hx Hepatobiliary: No pertinent hx Psych: No pertinent hx Musculoskeletal: Osteoarthritis Rheumatologic: No pertinent hx Infectious disease: No pertinent hx ENT: No pertinent hx Renal/: No pertinent hx, Urinary Incontinence Endocrine: hyperthyroidism Dermatology: No pertinent hx PAST SURGICAL HISTORY Past Surgical History left knee patellar repair FAMILY HISTORY Family History noncontributory SOCIAL HISTORY Smoke: <1 pack per day ALCOHOL: none Drugs: None Lives: Alone CURRENT MEDICATIONS CURRENT MEDICATIONS Current Medications Medications (Trade) Dose Ordered Sig/Bertin Route PRN Reason Start Time Stop Time Status Last Admin Dose Admin Ondansetron HCl (Zofran) 4 mg 1X ONCE IVP 06/26/21 13:30 06/26/21 13:31 DC 06/26/21 14:01 Sodium Chloride 1,000 ml @ 1,000 mls/hr 1X ONCE IV 06/26/21 13:30 06/26/21 14:29 DC 06/26/21 13:30 Hydralazine HCl (Apresoline Inj) 10 mg PRN Q6HRS PRN IVP ELEVATED BP, SEE COMMENTS 06/26/21 16:30 06/26/21 16:37 Metoprolol Tartrate (Lopressor Vial) 5 mg 1X ONCE IVP 06/26/21 18:00 06/26/21 18:01 DC 06/26/21 18:09 Enalaprilat (Vasotec Inj) 2.5 mg PRN Q6HRS PRN IVP HYPERTENSION 06/26/21 18:15 06/27/21 11:48 DC 06/26/21 22:59 Lorazepam (Ativan Inj) 1 mg PRN Q4HRS PRN IVP nausea 06/26/21 18:45 06/27/21 07:34 DC 06/26/21 22:59 Metoprolol Tartrate (Lopressor Vial) 5 mg Q6HRS IVP 06/26/21 20:15 06/27/21 12:12 Potassium Chloride/Dextrose/ Sod Cl 1,000 ml @ 80 mls/hr [id number] IV 06/26/21 20:30 06/27/21 08:59 DC 06/26/21 22:58 Ondansetron HCl (Zofran) 4 mg PRN Q4HRS PRN IVP NAUSEA/VOMITING 06/27/21 11:45 06/27/21 12:12 Ringer's Solution 1,000 ml @ 75 mls/hr 1X ONCE IV 06/27/21 11:45 06/28/21 01:04 06/27/21 12:12 ALLERGIES ALLERGIES: Coded Allergies: Latex, Natural Rubber (Verified Allergy, Severe, hives, 05/08/14) amlodipine (Verified Adverse Reaction, Intermediate, Nausea, 06/27/21) losartan (Verified Adverse Reaction, Intermediate, Nausea, 10/30/15) ROS Review of System 14 point ROS evaluated with pertinent positives noted per HPI PHYSICAL EXAM General: Alert, Oriented X3, Cooperative, No acute distress HEENT: Atraumatic, Mucous membr. moist/pink Lungs: Clear to auscultation, Normal air movement Heart: Regular rate (SR), Normal S1, Normal S2, No murmurs Abdomen: Soft, No tenderness Extremities: No cyanosis, No edema Skin: No breakdown, No significant lesion Neuro: Normal speech, Sensation intact Psych/Mental Status: Mental status NL, Mood NL MUSCULOSKELETAL: Osteoarthritic changes both hands VITALS/I&O VITALS/I&O: Vital Signs Date Time Temp Pulse Resp B/P (MAP) Pulse Ox O2 Delivery O2 Flow Rate FiO2 06/27/21 12:12 99 152/94 06/27/21 11:00 98.9 18 98 98.9 06/27/21 08:00 Room Air I & O 06/26/21 06/26/21 06/27/21 15:00 23:00 07:00 Intake Total 240 ml 200 ml Balance 240 ml 200 ml LABS Lab: Laboratory Tests Test 06/26/21 13:38 06/26/21 15:05 06/27/21 09:35 06/27/21 12:15 White Blood Count 9.4 x10^3/uL (4.0-11.0) Red Blood Count 5.30 x10^6/uL (3.50-5.40) Hemoglobin 14.3 g/dL (12.0-15.5) Hematocrit 43.3 % (36.0-47.0) Mean Corpuscular Volume 82 fL (79-100) Mean Corpuscular Hemoglobin 27 pg (25-35) Mean Corpuscular Hemoglobin Concent 33 g/dL (31-37) Red Cell Distribution Width 15.0 % (11.5-14.5) H Platelet Count 296 x10^3/uL (140-400) Neutrophils (%) (Auto) 86 % (31-73) H Lymphocytes (%) (Auto) 11 % (24-48) L Monocytes (%) (Auto) 2 % (0-9) Eosinophils (%) (Auto) 0 % (0-3) Basophils (%) (Auto) 0 % (0-3) Neutrophils # (Auto) 8.1 x10^3/uL (1.8-7.7) H Lymphocytes # (Auto) 1.1 x10^3/uL (1.0-4.8) Monocytes # (Auto) 0.2 x10^3/uL (0.0-1.1) Eosinophils # (Auto) 0.0 x10^3/uL (0.0-0.7) Basophils # (Auto) 0.0 x10^3/uL (0.0-0.2) Sodium Level 134 mmol/L (136-145) L 135 mmol/L (136-145) L Potassium Level 3.6 mmol/L (3.5-5.1) 3.5 mmol/L (3.5-5.1) Chloride Level 97 mmol/L (98-107) L 98 mmol/L (98-107) Carbon Dioxide Level 21 mmol/L (21-32) 22 mmol/L (21-32) Anion Gap 16 (6-14) H 15 (6-14) H Blood Urea Nitrogen 12 mg/dL (7-20) 16 mg/dL (7-20) Creatinine 1.1 mg/dL (0.6-1.0) H 1.7 mg/dL (0.6-1.0) H Estimated GFR (Cockcroft-Gault) 58.4 35.4 BUN/Creatinine Ratio 11 (6-20) Glucose Level 160 mg/dL (70-99) H 152 mg/dL (70-99) H Calcium Level 9.3 mg/dL (8.5-10.1) 8.9 mg/dL (8.5-10.1) Total Bilirubin 0.9 mg/dL (0.2-1.0) Aspartate Amino Transferase (AST) 16 U/L (15-37) Alanine Aminotransferase (ALT) 19 U/L (14-59) Alkaline Phosphatase 141 U/L (46-116) H Troponin I Quantitative 0.021 ng/mL (0.000-0.055) 0.079 ng/mL (0.000-0.055) 0.081 ng/mL (0.000-0.055) Total Protein 8.7 g/dL (6.4-8.2) H Albumin 4.1 g/dL (3.4-5.0) Albumin/Globulin Ratio 0.9 (1.0-1.7) L Urine Collection Type Unknown Urine Color Yellow Urine Clarity Clear Urine pH 7.5 (<5.0-8.0) Urine Specific [place] 1.010 (1.000-1.030) Urine Protein 100 mg/dL (NEG-TRACE) Urine Glucose (UA) 100 mg/dL (NEG) Urine Ketones (Stick) 15 mg/dL (NEG) Urine Blood Small (NEG) Urine Nitrite Negative (NEG) Urine Bilirubin Negative (NEG) Urine Urobilinogen Dipstick 0.2 mg/dL (0.2 mg/dL) Urine Leukocyte Esterase Negative (NEG) Urine RBC 20-40 /HPF (0-2) Urine WBC 1-4 /HPF (0-4) Urine Squamous Epithelial Cells Mod /LPF Urine Bacteria 0 /HPF (0-FEW) Urine Mucus Slight /LPF SARS-CoV-2 RNA (KHALIF) Negative (Negative) SARS-CoV-2 Antigen (Rapid) Negative (NEGATIVE) Laboratory Tests 06/26/21 13:38 Laboratory Tests 06/26/21 13:38 06/27/21 09:35 ASSESSMENT/PLAN ASSESSMENT/PLAN 1. Nausea/vomiting/diarrhea: possible food poisoning. GI following 2. HTN urgency: as high as 250/116, possibly from missed meds due to GI symptoms 3. Mild troponin elevation: possible demand mediated. No acute changes to EKG by comparison with LV strain pattern. No cardiac symptoms 4. Hyperthyroidism: on tapazole per med review 5. GUSTAVO: prerenal Recommendations 1. TTE, TSH, FLP. Repeat EKG 2. Restart home BP meds and ASA/statin RAMIRO GIRARD MD 06/27/21 1710: CARDIAC CONSULT ASSESSMENT/PLAN ASSESSMENT/PLAN The patient was seen and interviewed as well as examined at the bedside. The chart was reviewed. The case was discussed. Agree with the plan of care. MARS BUSTAMANTE APRN Jun 27, 2021 13:41 RAMIRO GIRARD MD Jun 27, 2021 17:10
[2021-06-27] MEDS ORDERED: hydrALAZINE 20 MG/ML VIAL. IVP PRN (13:45)
[2021-06-27 13:55] LABS: CHOLESTEROL/HDL RATIO 3.9
--- NOTE | 2021-06-27 14:04 | EKG ---
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
[2021-06-27] MEDS: CARVEDILOL 12.5 MG TABLET. PO SCH (15:58)
[2021-06-27] MEDS ORDERED: traMADol 50 MG TABLET PO PRN (16:15)
[2021-06-27] MEDS ORDERED: DICYCLOMINE HCL 10 MG CAPSULE PO PRN (16:15)
[2021-06-27] MEDS ORDERED: ACETAMINOPHEN 325 MG TABLET. PO PRN (16:15)
[2021-06-27] MEDS ORDERED: fentaNYL PF VIAL 100 MCG/2 ML VIAL IVP PRN (16:15)
--- NOTE | 2021-06-27 16:18 | CARD ---
MR#: [id number] Date of Study: 06/27/2021 Ordering Physician: MARS BUSTAMANTE, Referring Physician: MARS BUSTAMANTE Tech: Cecilia Andujar [facility] APPROVED REPORT EXAM: Two-dimensional and M-mode echocardiogram with Doppler and color Doppler. Other Information Quality : Technically LimitedHR: 82bpm Rhythm : NSR INDICATION Dyspnea Hypertension/HCVD RISK FACTORS Hypertension Obesity Hyperlipidemia 2D DIMENSIONS Left Atrium(2D)3.3 (1.6-4.0cm)IVSd1.2 (0.7-1.1cm) Aortic Root(2D)3.4 (2.0-3.7cm)LVDd3.9 (3.9-5.9cm) LVOT Diameter2.1 (1.8-2.4cm)PWd1.0 (0.7-1.1cm) LVDs2.8 (2.5-4.0cm)FS (%) 26.8 % SV34.3 mlLVEF(%)53.1 (>50%) Aortic Valve AoV Peak Cory.103.0cm/Abdirashid Peak GR.4.2mmHg Tricuspid Valve TR P. [id number] Peak Gr.21mmHg LEFT VENTRICLE The left ventricle is normal size. There is mild concentric left ventricular hypertrophy. The left ve ntricular systolic function is normal. Estimated ejection fraction 55-60%. There is normal LV segmen yoel wall motion. RIGHT VENTRICLE The right ventricle is normal size. The right ventricle is mildly hypertrophied. The right ventricula r systolic function is normal. ATRIA The left atrium size is normal. The right atrium size is normal. The interatrial septum is intact wit h no evidence for an atrial septal defect or patent foramen ovale as noted on 2-D or Doppler imaging. AORTIC VALVE The aortic valve is normal in structure and function. Doppler and Color Flow revealed mild aortic reg urgitation. There is no significant aortic valvular stenosis. MITRAL VALVE The mitral valve is normal in structure and function. There is no evidence of mitral valve prolapse. There is no mitral valve stenosis. Doppler and Color-flow revealed mild mitral regurgitation. TRICUSPID VALVE The tricuspid valve is normal in structure and function. Doppler and Color Flow revealed mild tricusp id regurgitation. Estimated PAP 25 mmHg. There is no tricuspid valve stenosis. PULMONIC VALVE The pulmonary valve is normal in structure and function. Doppler and Color Flow revealed no pulmonic valvular regurgitation. GREAT VESSELS The aortic root is normal in size. The ascending aorta is normal in size. The IVC is normal in size a nd collapses >50% with inspiration. PERICARDIAL EFFUSION There is no evidence of significant pericardial effusion. Critical Notification Critical Value: No <Conclusion> The left ventricular systolic function is normal. Estimated ejection fraction 55-60%. There is normal LV segmental wall motion. Mild aortic regurgitation. Mild mitral regurgitation. Mild tricuspid regurgitation. Estimated PAP 25 mmHg. There is no evidence of significant pericardial effusion. Signed by : Jerrod Fox, Electronically Approved : 06/27/2021 16:18:04
[2021-06-28 03:00] VITALS: BP 89/40
[2021-06-28 03:45] LABS: CALCIUM 8.8 mg/dL (8.5-10.1); CREATININE 2.6 mg/dL (0.6-1.0); GFR 21.7; POTASSIUM 3.8 mmol/L (3.5-5.1)
[2021-06-28 07:00] VITALS: BP 84/41
[2021-06-28] MEDS: CARVEDILOL 12.5 MG TABLET. PO SCH ×2 (08:00→17:15)
--- NOTE | 2021-06-28 09:59 | NUR ---
Pt BP 84/41. Pt asymptomatic at this time. AM BP medications held. She states that she "feels better" and wants to try solid food for lunch. Dr. Sharma notified. No further orders received at this time.
[2021-06-28 11:00] VITALS: BP 127/68
--- NOTE | 2021-06-28 13:22 | PDOC ---
CARDIOLOGY PROGRESS NOTE SUBJECTIVE: No acute events overnight. No chest pain. No dyspnea. N/V is improved. OBJECTIVE: Vital Signs/I&O: Vital Signs Date Time Temp Pulse Resp B/P (MAP) Pulse Ox O2 Delivery O2 Flow Rate FiO2 06/28/21 11:00 98.2 66 18 127/68 (87) 97 Room Air 98.2 I & O 06/27/21 06/27/21 06/28/21 15:00 23:00 07:00 Intake Total 1000 ml 352 ml 120 ml Balance 1000 ml 352 ml 120 ml Objective: GEN.: No apparent distress. Alert and oriented. HEENT: Head is normocephalic, atraumatic NECK: Supple. LUNGS: Clear to auscultation. HEART: RRR, S1, S2 present. Peripheral pulses intact ABDOMEN: Soft, nontender. Positive bowel sounds. EXTREMITIES: Without any cyanosis. NEUROLOGIC: Normal speech, normal tone PSYCHIATRIC: Normal affect, normal mood. SKIN: No ulcerations CURRENT MEDICATIONS: Current Medications Medications (Trade) Dose Ordered Sig/Bertin Route PRN Reason Start Time Stop Time Status Last Admin Dose Admin Amlodipine Besylate (Norvasc) 10 mg DAILY PO 06/27/21 14:30 06/27/21 15:59 Carvedilol (Coreg) 12.5 mg BIDWMEALS PO 06/27/21 17:00 06/27/21 15:58 Tramadol HCl (Ultram) 50 mg PRN Q6HRS PRN PO MODERATE-SEVERE PAIN 06/27/21 16:15 06/27/21 16:22 DIAGNOSTIC TESTING: Labs reviewed. ASSESSMENT: 1. N/V - probable gastroenteritis 2. NSTEMI - likely Type 2 3. HTN - now with low BP 4. GUSTAVO due to above. 5. Dyslipidemia PLAN: 1. Agree with holding medical therapy for HTN until her appetite returns and she is able to tolerate p.o 2. Echo wnl, low suspicion for ischemia at this time. Supportive care. Restart Meds slowly as you are currently doing. No further CV testing needed. Justicifation of Admission Dx: Justifications for Admission: Justification of Admission Dx: N/A RAMIRO GIRARD MD Jun 28, 2021 13:22
--- NOTE | 2021-06-28 14:41 | PDOC ---
[facility] [facility] PROGRESS NOTE Date of Service DOS: DATE: 06/28/21 TIME: 14:40 Chief Complaint Chief Complaint A/P: nausea and vomiting and diarrhea, IV fluid support and 2 nausea IV meds ordered acute viral enteritis, or possible food poisoning from [employer] accelerated htn, vomited her home meds, replace IV for PO, try to get control GUSTAVO - likely vasomotor nephropathy from dehydration, BP shifts. Will give additional IVF, hydrate, repeat BMP in AM Elevated troponin - likely demand ischemia, however with her atypical symptoms will have cardiac eval FEN - liquid diet PPX - heparin FULL CODE Dispo - inpatient History of Present Illness History of Present Illness Ms. Rodriguez is a 76-year-old female w/ PMHx HTN who is admitted from ER for Nausea and vomiting and diarrhea. She reports acute symptoms began at 430 on 06/26/2021 in the morning, and that she vomited her meds She at leftover [employer] pizza at bedtime the night before and hasn't been able to eat anything since. Patient denies any known sick contacts. She has been vaccinated for COVID. BP was elevated with systolic over 210 mmHg was given IV Vasotec and IV metoprolol substitute for her 25 mg carvedilol. 06/27: She felt a little better after Nausea meds and IV fluid and tried jello but had further nausea. BP low this morning. No further vomiting but not feeling any better. Repeat CR 1.7. No overnight events no chest pain dyspnea nausea and vomiting improved however her creatinine has climbed to 2.6. Vitals/I&O Vitals/I&O: Vital Signs Date Time Temp Pulse Resp B/P (MAP) Pulse Ox O2 Delivery O2 Flow Rate FiO2 06/28/21 11:00 98.2 66 18 127/68 (87) 97 Room Air 98.2 I & O 06/27/21 06/27/21 06/28/21 15:00 23:00 07:00 Intake Total 1000 ml 352 ml 120 ml Balance 1000 ml 352 ml 120 ml Physical Exam General: Alert, Oriented X3, Cooperative, No acute distress Heart: Regular rate (SR), Normal S1, Normal S2, No murmurs Abdomen: Soft, No tenderness Extremities: No cyanosis, No edema Skin: No breakdown, No significant lesion Labs Labs: Laboratory Tests Test 06/28/21 03:00 Sodium Level 136 mmol/L (136-145) Potassium Level 3.8 mmol/L (3.5-5.1) Chloride Level 101 mmol/L (98-107) Carbon Dioxide Level 27 mmol/L (21-32) Anion Gap 8 (6-14) Blood Urea Nitrogen 26 mg/dL (7-20) Creatinine 2.6 mg/dL (0.6-1.0) Estimated GFR (Cockcroft-Gault) 21.7 Glucose Level 100 mg/dL (70-99) Calcium Level 8.8 mg/dL (8.5-10.1) Troponin I Quantitative 0.083 ng/mL (0.000-0.055) Assessment and Plan Assessmemt and Plan Problems Medical Problems: (1) Dehydration Status: Acute (2) Gastroenteritis Status: Acute Comment Review of Relevant I have reviewed the following items prema (where applicable) has been applied. Medications: Current Medications Medications (Trade) Dose Ordered Sig/Bertin Route PRN Reason Start Time Stop Time Status Last Admin Dose Admin Carvedilol (Coreg) 12.5 mg BIDWMEALS PO 06/27/21 17:00 06/27/21 15:58 Tramadol HCl (Ultram) 50 mg PRN Q6HRS PRN PO MODERATE-SEVERE PAIN 06/27/21 16:15 06/27/21 16:22 Justifications for Admission Other Justification EDDY MYERS MD Jun 28, 2021 14:41
[2021-06-28] MEDS ORDERED: IV RINGERS,LACTATED 1000ML 1,000 ML IV ONE (14:45)
[2021-06-28 15:00] VITALS: BP 141/57
[2021-06-28 19:49] VITALS: BP 108/44
[2021-06-28 23:44] VITALS: BP 132/64
[2021-06-29 03:11] VITALS: BP 120/49
[2021-06-29 07:00] VITALS: BP 138/60
[2021-06-29 08:13] LABS: CALCIUM 8.5 mg/dL (8.5-10.1); CREATININE 1.6 mg/dL (0.6-1.0); GFR 37.9; PHOSPHORUS 3.4 mg/dL (2.6-4.7); POTASSIUM 3.5 mmol/L (3.5-5.1)
[2021-06-29] MEDS: CARVEDILOL 12.5 MG TABLET. PO SCH (08:46)
[2021-06-29 11:00] VITALS: BP 133/59
--- NOTE | 2021-06-29 12:30 | PDOC ---
[facility] [facility] PROGRESS NOTE Date of Service DOS: DATE: 06/29/21 TIME: 12:24 Chief Complaint Chief Complaint A/P: nausea and vomiting and diarrhea, IV fluid support and 2 nausea IV meds ordered acute viral enteritis, or possible food poisoning from [employer] accelerated htn, vomited her home meds, replace IV for PO, try to get control GUSTAVO - likely vasomotor nephropathy from dehydration, BP shifts. Will give additional IVF, hydrate, repeat BMP in AM Elevated troponin - likely demand ischemia, however with her atypical symptoms will have cardiac eval FEN - liquid diet PPX - heparin FULL CODE Dispo - inpatient History of Present Illness History of Present Illness Ms. Rodriguez is a 76-year-old female w/ PMHx HTN who is admitted from ER for Nausea and vomiting and diarrhea. She reports acute symptoms began at 430 on 06/26/2021 in the morning, and that she vomited her meds She at leftover [employer] pizza at bedtime the night before and hasn't been able to eat anything since. Patient denies any known sick contacts. She has been vaccinated for COVID. BP was elevated with systolic over 210 mmHg was given IV Vasotec and IV metoprolol substitute for her 25 mg carvedilol. 06/27: She felt a little better after Nausea meds and IV fluid and tried jello but had further nausea. BP low this morning. No further vomiting but not feeling any better. Repeat CR 1.7. 06/28: No overnight events no chest pain dyspnea nausea and vomiting improved however her creatinine has climbed to 2.6. No overnight events. Taking shower today feels better. Creatinine improved to 1.6. Blood pressures stable with amlodipine and carvedilol 12.5 mg twice daily this may be her new regimen. D/w cardiology and GI. Vitals/I&O Vitals/I&O: Vital Signs Date Time Temp Pulse Resp B/P (MAP) Pulse Ox O2 Delivery O2 Flow Rate FiO2 06/29/21 11:00 97.8 61 18 133/59 (83) 98 Room Air 97.8 I & O 06/28/21 06/28/21 06/29/21 15:00 23:00 07:00 Intake Total 240 ml 320 ml 180 ml Balance 240 ml 320 ml 180 ml Physical Exam General: Alert, Oriented X3, Cooperative, No acute distress Heart: Regular rate (SR), Normal S1, Normal S2, No murmurs Abdomen: Soft, No tenderness Extremities: No cyanosis, No edema Skin: No breakdown, No significant lesion Labs Labs: Laboratory Tests Test 06/29/21 06:25 Sodium Level 139 mmol/L (136-145) Potassium Level 3.5 mmol/L (3.5-5.1) Chloride Level 102 mmol/L (98-107) Carbon Dioxide Level 27 mmol/L (21-32) Anion Gap 10 (6-14) Blood Urea Nitrogen 24 mg/dL (7-20) Creatinine 1.6 mg/dL (0.6-1.0) Estimated GFR (Cockcroft-Gault) 37.9 Glucose Level 84 mg/dL (70-99) Calcium Level 8.5 mg/dL (8.5-10.1) Phosphorus Level 3.4 mg/dL (2.6-4.7) Albumin 3.0 g/dL (3.4-5.0) Assessment and Plan Assessmemt and Plan Problems Medical Problems: (1) Dehydration Status: Acute (2) Gastroenteritis Status: Acute Comment Review of Relevant I have reviewed the following items prema (where applicable) has been applied. Medications: Current Medications Medications (Trade) Dose Ordered Sig/Bertin Route PRN Reason Start Time Stop Time Status Last Admin Dose Admin Ringer's Solution 1,000 ml @ 75 mls/hr 1X ONCE IV 06/28/21 14:45 06/29/21 04:04 DC 06/28/21 15:35 Justifications for Admission Other Justification EDDY MYERS MD Jun 29, 2021 12:30
[2021-06-29] MEDS ORDERED: CARV25TA2 PO (14:08)
--- NOTE | 2021-06-29 14:14 | PDOC3 ---
Discharge Summary Visit Information Date of Admission: Jun 26, 2021 Date of Discharge: Jun 29, 2021 Admitting Diagnosis: Gastroenteritis Final Diagnosis Problems Medical Problems: (1) Dehydration Status: Acute (2) Gastroenteritis Status: Acute Brief Hospital Course Allergies Allergies Coded Allergies Type Severity Reaction Last Updated Verified Latex, Natural Rubber Allergy Severe hives 05/08/14 Yes amlodipine Adverse Reaction Intermediate Nausea 06/27/21 Yes losartan Adverse Reaction Intermediate Nausea 10/30/15 Yes Vital Signs Vital Signs Date Time Temp Pulse Resp B/P (MAP) Pulse Ox O2 Delivery O2 Flow Rate FiO2 06/29/21 11:00 97.8 61 18 133/59 (83) 98 Room Air 97.8 Lab Results Laboratory Tests Test 06/28/21 03:00 06/29/21 06:25 Sodium Level 136 mmol/L (136-145) 139 mmol/L (136-145) Potassium Level 3.8 mmol/L (3.5-5.1) 3.5 mmol/L (3.5-5.1) Chloride Level 101 mmol/L (98-107) 102 mmol/L (98-107) Carbon Dioxide Level 27 mmol/L (21-32) 27 mmol/L (21-32) Anion Gap 8 (6-14) 10 (6-14) Blood Urea Nitrogen 26 mg/dL (7-20) 24 mg/dL (7-20) Creatinine 2.6 mg/dL (0.6-1.0) 1.6 mg/dL (0.6-1.0) Estimated GFR (Cockcroft-Gault) 21.7 37.9 Glucose Level 100 mg/dL (70-99) 84 mg/dL (70-99) Calcium Level 8.8 mg/dL (8.5-10.1) 8.5 mg/dL (8.5-10.1) Troponin I Quantitative 0.083 ng/mL (0.000-0.055) Phosphorus Level 3.4 mg/dL (2.6-4.7) Albumin 3.0 g/dL (3.4-5.0) Laboratory Tests Test 06/29/21 06:25 Sodium Level 139 mmol/L (136-145) Potassium Level 3.5 mmol/L (3.5-5.1) Chloride Level 102 mmol/L (98-107) Carbon Dioxide Level 27 mmol/L (21-32) Anion Gap 10 (6-14) Blood Urea Nitrogen 24 mg/dL (7-20) Creatinine 1.6 mg/dL (0.6-1.0) Estimated GFR (Cockcroft-Gault) 37.9 Glucose Level 84 mg/dL (70-99) Calcium Level 8.5 mg/dL (8.5-10.1) Phosphorus Level 3.4 mg/dL (2.6-4.7) Albumin 3.0 g/dL (3.4-5.0) Brief Hospital Course Ms. Rodriguez is a 76-year-old female w/ PMHx HTN who is admitted from ER for Nausea and vomiting and diarrhea. She reports acute symptoms began at 430 on 06/26/2021 in the morning, and that she vomited her meds She at leftover [employer] at bedtime the night before and hasn't been able to eat anything since. Patient denies any known sick contacts. She has been vaccinated for COVID. BP was elevated with systolic over 210 mmHg was given IV Vasotec and IV metoprolol substitute for her 25 mg carvedilol. 06/27: She felt a little better after Nausea meds and IV fluid and tried jello but had further nausea. BP low this morning. No further vomiting but not feeling any better. Repeat CR 1.7. 06/28: No overnight events no chest pain dyspnea nausea and vomiting improved however her creatinine has climbed to 2.6. 06/29, day of dc: No overnight events. Taking shower today feels better. Creatinine improved to 1.6. Blood pressures stable with amlodipine and carvedilol 12.5 mg twice daily this may be her new regimen. D/w cardiology and GI. Problem list: nausea and vomiting and diarrhea, IV fluid support and 2 nausea IV meds or dered with resolution acute viral enteritis, or possible food poisoning from [employer] accelerated htn, vomited her home meds, replaced IV for PO, try to get control, overshot it GUSTAVO - likely vasomotor nephropathy from dehydration, BP shifts. Improved with additional IVF, hydrated Elevated troponin - likely demand ischemia, however with her atypical symptoms had cardiac eval Seen by gastroenterology and cardiology in consultation. Initially blood pressure was elevated she was restarted on her home medications and that relative hypotension had vasomotor nephropathy from dehydration. Relative renal hypoperfusion and for 2 days was stable on restarting amlodipine 10 mg and carvedilol 12.5 mg twice daily held doxazosin and losartan Echocardiogram: The left ventricular systolic function is normal. Estimated ejection fraction 55-60%. There is normal LV segmental wall motion. Mild aortic regurgitation. Mild mitral regurgitation. Mild tricuspid regurgitation. Estimated PAP 25 mmHg. There is no evidence of significant pericardial effusion. History and time course of syndrome support Staphylococcal toxin food poisoning as cause. ADAT and home at your discretion Greater than 30 minutes spent on d/c home, has her niece at home. Discharge Information Condition at Discharge: Improved Follow Up: Weeks (1) Disposition/Orders: D/C to Home Scheduled Amlodipine Besylate (Amlodipine Besylate) 10 Mg Tablet, 10 MG PO DAILY for HTN, (Reported) Entered as Reported by: ALEJANDRA MAXWELL on 06/26/211747 Last Taken: Unknown Dose on 06/25/21 Last Action: Continued on 06/27/21 1340 by MARS BUSTAMANTE Aspirin (Aspirin Ec) 81 Mg Tablet.dr, 1 TAB PO DAILY, #30 Ref 3 (Reported) Entered as Reported by: JUDD STEVENS on 05/08/14 1359 Last Taken: Unknown Dose on 06/25/21 Last Action: Last Taken Edited on 06/26/211747 by ALEJANDRA MAXWELL Atorvastatin Calcium (Atorvastatin Calcium) 20 Mg Tablet, 1 TAB PO DAILY for HLD, #30 Ref 5 (Reported) Entered as Reported by: ALEJANDRA MAXWELL on 06/26/211747 Last Taken: Unknown Dose on 06/25/21 Last Action: New Order on 06/26/211747 by ALEJANDRA MAXWELL Carvedilol (Carvedilol) 25 Mg Tablet, 12.5 MG PO BIDWMEALS for HTN for 30 Days, #30 Prescribed by: EDDY MYERS MD on 06/29/21 1408 Diclofenac Sodium (Diclofenac Sodium) 75 Mg Tablet.dr, 1 TAB PO BID for pain, #60 Ref 1 (Reported) Entered as Reported by: ALEJANDRA MAXWELL on 06/26/211747 Last Taken: Unknown Dose on 06/25/21 Last Action: New Order on 06/26/211747 by ALEJANDRA MAXWELL Methimazole (Tapazole) 10 Mg Tablet, 15 MG PO DAILY for hyperthyroid, (Reported) Entered as Reported by: ALEJANDRA MAXWELL on 06/26/211747 Last Taken: Unknown Dose on 06/25/21 Last Action: New Order on 06/26/211747 by ALEJANDRA MAXWELL Discontinued Medications Doxazosin Mesylate (Doxazosin Mesylate) 8 Mg Tablet, 1 TAB PO DAILY, #30 Ref 5 (Reported) Entered as Reported by: JUDD STEVENS on 05/08/14 1359 Last Taken: Unknown Dose on 06/25/21 Last Action: Last Taken Edited on 06/26/211747 by ALEJANDRA MAXWELL Hydrochlorothiazide (Hydrochlorothiazide Tablet) 12.5 Mg Tablet, 25 MG PO DAILY for DIURETIC, Ref 0 (Reported) Entered as Reported by: ALEJANDRA MAXWELL on 06/26/211747 Last Taken: Unknown Dose on 06/25/21 Last Action: HELD on 06/27/21 1340 by MARS BUSTAMANTE Justicifation of Admission Dx: Justifications for Admission: Justification of Admission Dx: N/A EDDY MYERS MD Jun 29, 2021 14:14
[2021-06-29 15:33] VITALS: BP 135/60
--- NOTE | 2021-06-29 15:58 | NUR ---
Discharge Note: ELVIE CALVO [place] Discharge instructions and discharge home medications reviewed with Patient and a copy given. All questions have been answered and understanding verbalized. The following instructions and handouts were given: f/u with PCP within two weeks. Discontinued lines and drains: intact. Patient discharged to Home or Self Care with Family Member via Wheelchair.
== END 2021-06-29 16:00 | disposition home or self-care (01) | DRG 391 ==
LOC: ER 12:52 → 5 NORTH 15:15 → OBSVTOIN 06-27 11:51
PROVIDERS: ADMIT Internal Medicine; ATTEND Internal Medicine
DX: A05.9 Bacterial foodborne intoxication, unspecified (principal); I21.4 Non-ST elevation (NSTEMI) myocardial infarction; N17.0 Acute kidney failure with tubular necrosis; A08.4 Viral intestinal infection, unspecified; E05.90 Thyrotoxicosis, unspecified without thyrotoxic crisis or storm; E78.5 Hyperlipidemia, unspecified; E86.0 Dehydration; F17.210 Nicotine dependence, cigarettes, uncomplicated; I10 Essential (primary) hypertension; I16.0 Hypertensive urgency; M19.011 Primary osteoarthritis, right shoulder; M19.012 Primary osteoarthritis, left shoulder; Z80.9 Family history of malignant neoplasm, unspecified; Z86.010 Personal history of colon polyps; B95.8 Unspecified staphylococcus as the cause of diseases classified elsewhere; Z90.49 Acquired absence of other specified parts of digestive tract
CPT/HCPCS: 36415; 71045; 80048; 80053; 80061; 80069; 81001; 82550; 84439; 84443; 84480; 84484; 85025; 87426; 93005; 93306; 96361; 96374; 96375; G0378; G0379; J0360; J2060; J2405; J3480; J3490; J7030; J7120; U0003; U0005; 99285-25

== ENCOUNTER 2021-08-17 10:45 | Emergency (ER) | payer MEDICARE ==
[~2021-08-17] VITALS: Ht 154.9 cm; Wt 68.2 kg
[~2021-08-17 10:45] MED LIST changes: +AMLO-187 PO; +ATOR20TA58 PO; -BISO1TAB8 PO; +BISO1TAB84 PO; +DICL75TA PO; +HYDR12.58 PO; +METH-184 PO
[2021-08-17] MEDS ORDERED: ONDANSETRON PF 4 MG/2 ML VIAL. IVP ONE (11:30)
--- NOTE | 2021-08-17 11:45 | ED.ADGEN ---
Past Medical History Past Medical History: Arthritis, Hypertension Past Surgical History: No Surgical History Additional Past Surgical Histo: ectopic Smoking Status: Former Smoker Alcohol Use: None Drug Use: None General Adult EDM: Chief Complaint: NAUSEA/VOMITING/DIARRHEA HPI: HPI: Patient is a 76 year old female coming in for nausea, vomiting, diarrhea, and abdominal pain that started about 8 hours prior to arrival. Patient states that the pain and vomiting woke her from sleep, has vomited about 10 times. Denies any bloody or bilious emesis. Denies any fevers or dysuria, complaining of occasional cough. Denies any sick contacts, raw or undercooked foods, recent antibiotic use or travel. Patient has had both of her Covid vaccines and her booster, is also had her influenza vaccine. Review of Systems: Review of Systems: All other systems within normal limits except for as noted in the HPI Current Medications: Current Medications Medications (Trade) Dose Ordered Sig/Bertin Start Time Stop Time Status Last Admin Dose Admin Calcium Gluconate (Calcium Gluconate) 1,000 mg 1X ONCE 08/17/21 14:15 08/17/21 14:21 DC 08/17/21 14:37 1,000 MG Dicyclomine HCl (Bentyl) 20 mg 1X ONCE 08/17/21 15:15 08/17/21 15:16 DC Fentanyl Citrate (Fentanyl 2ml Vial) 75 mcg 1X ONCE 08/17/21 12:30 08/17/21 12:31 DC 08/17/21 12:30 75 MCG Info (CONTRAST GIVEN -- Rx MONITORING) 1 each PRN DAILY PRN 08/17/21 14:30 08/19/21 14:29 Iohexol (Omnipaque 300 Mg/ml) 75 ml 1X ONCE 08/17/21 14:30 08/17/21 14:31 DC 08/17/21 14:46 75 ML Magnesium Sulfate/ Dextrose 100 ml @ 100 mls/hr 1X ONCE 08/17/21 14:45 08/17/21 15:44 DC Ondansetron HCl (Zofran) 4 mg 1X ONCE 08/17/21 11:30 08/17/21 11:31 DC 08/17/21 11:39 4 MG Potassium Chloride/Water 100 ml @ 50 mls/hr Q2H 08/17/21 14:30 08/17/21 18:29 08/17/21 14:43 50 MLS/HR Potassium Chloride (Klor-Con) 40 meq 1X ONCE 08/17/21 14:15 08/17/21 14:21 DC 08/17/21 14:37 40 MEQ Potassium Phos/ Sodium Phos (Phos-Nak) 1 pkt 1X STAT 08/17/21 14:34 08/17/21 14:41 DC Allergies: Allergies: Allergies Coded Allergies Type Severity Reaction Last Updated Verified Latex, Natural Rubber Allergy Severe hives 05/08/14 Yes amlodipine Adverse Reaction Intermediate Nausea 06/27/21 Yes losartan Adverse Reaction Intermediate Nausea 10/30/15 Yes Physical Exam: PE: Constitutional: Well developed, well nourished, no acute distress, non-toxic appearance. [] HENT: Normocephalic, atraumatic, bilateral external ears normal, nose normal. [] Eyes: PERRLA, conjunctiva normal, no discharge. [] Neck: No rigidity, supple, no stridor. [] Cardiovascular: Regular rate and rhythm, brisk cap refill [] Lungs & Thorax: Non labored symmetric respirations, no tachypnea or respiratory distress [] Abdomen: Soft, nondistended, generalized tenderness elevation, no guarding rebound. Skin: Warm, dry, no erythema, no rash. [] Back: Unremarkable Extremities: No deformities, range of motion grossly intact, no lower extremity edema [] Neurologic: Alert and oriented X 3, no focal deficits noted. [] Psychologic: Affect normal, judgement normal, mood normal. [] Current Patient Data: Labs: Laboratory Tests Test 08/17/21 11:30 08/17/21 13:00 08/17/21 15:00 08/17/21 15:15 Urine Collection Type Unknown Urine Color Yellow Urine Clarity Clear Urine pH 8.0 (<5.0-8.0) Urine Specific Newcomb 1.010 (1.000-1.030) Urine Protein Negative mg/dL (NEG-TRACE) Urine Glucose (UA) 250 mg/dL (NEG) Urine Ketones (Stick) Negative mg/dL (NEG) Urine Blood Negative (NEG) Urine Nitrite Negative (NEG) Urine Bilirubin Negative (NEG) Urine Urobilinogen Dipstick 0.2 mg/dL (0.2 mg/dL) Urine Leukocyte Esterase Negative (NEG) Urine RBC Occ /HPF (0-2) Urine WBC 1-4 /HPF (0-4) Urine Squamous Epithelial Cells Few /LPF Urine Bacteria Few /HPF (0-FEW) White Blood Count 5.2 x10^3/uL (4.0-11.0) Red Blood Count 3.70 x10^6/uL (3.50-5.40) Hemoglobin 10.0 g/dL (12.0-15.5) L Hematocrit 30.3 % (36.0-47.0) L Mean Corpuscular Volume 82 fL (79-100) Mean Corpuscular Hemoglobin 27 pg (25-35) Mean Corpuscular Hemoglobin Concent 33 g/dL (31-37) Red Cell Distribution Width 15.2 % (11.5-14.5) H Platelet Count 201 x10^3/uL (140-400) Neutrophils (%) (Auto) 84 % (31-73) H Lymphocytes (%) (Auto) 13 % (24-48) L Monocytes (%) (Auto) 2 % (0-9) Eosinophils (%) (Auto) 0 % (0-3) Basophils (%) (Auto) 0 % (0-3) Neutrophils # (Auto) 4.3 x10^3/uL (1.8-7.7) Lymphocytes # (Auto) 0.7 x10^3/uL (1.0-4.8) L Monocytes # (Auto) 0.1 x10^3/uL (0.0-1.1) Eosinophils # (Auto) 0.0 x10^3/uL (0.0-0.7) Basophils # (Auto) 0.0 x10^3/uL (0.0-0.2) Sodium Level mmol/L (136-145) 136 mmol/L (136-145) Potassium Level mmol/L (3.5-5.1) 3.3 mmol/L (3.5-5.1) L Chloride Level mmol/L (98-107) 100 mmol/L (98-107) Carbon Dioxide Level mmol/L (21-32) 23 mmol/L (21-32) Anion Gap (6-14) 13 (6-14) Blood Urea Nitrogen mg/dL (7-20) 10 mg/dL (7-20) Creatinine mg/dL (0.6-1.0) 0.8 mg/dL (0.6-1.0) Estimated GFR (Cockcroft-Gault) 84.4 BUN/Creatinine Ratio (6-20) 13 (6-20) Glucose Level mg/dL (70-99) 161 mg/dL (70-99) H Calcium Level mg/dL (8.5-10.1) 9.1 mg/dL (8.5-10.1) Phosphorus Level mg/dL (2.6-4.7) 2.2 mg/dL (2.6-4.7) L Magnesium Level mg/dL (1.8-2.4) 1.8 mg/dL (1.8-2.4) Total Bilirubin mg/dL (0.2-1.0) 0.5 mg/dL (0.2-1.0) Aspartate Amino Transferase (AST) U/L (15-37) 15 U/L (15-37) Alanine Aminotransferase (ALT) U/L (14-59) 17 U/L (14-59) Alkaline Phosphatase U/L (46-116) 133 U/L (46-116) H Total Protein g/dL (6.4-8.2) 8.2 g/dL (6.4-8.2) Albumin g/dL (3.4-5.0) 3.7 g/dL (3.4-5.0) Albumin/Globulin Ratio (1.0-1.7) 0.8 (1.0-1.7) L Lipase U/L (73-393) 23 U/L (73-393) L Ionized Calcium 1.20 mmol/L (1.13-1.32) O2 Saturation 93 % (92-99) Arterial Blood pH 7.39 (7.35-7.45) Arterial Blood pCO2 at Patient Temp 37 mmHg (35-46) Arterial Blood pO2 at Patient Temp 69 mmHg (65-108) Arterial Blood HCO3 22 mmol/L (21-28) Arterial Blood Base Excess -2 mmol/L (-3-3) FiO2 21 Laboratory Tests 08/17/21 13:00 Laboratory Tests 08/17/21 13:00 08/17/21 15:00 Vital Signs: Vital Signs Date Time Temp Pulse Resp B/P (MAP) Pulse Ox O2 Delivery O2 Flow Rate FiO2 08/17/21 13:00 72 22 221/90 (133) 98 Room Air 08/17/21 12:55 2.0 2.0 2.0 08/17/21 11:05 97.6 97.6 EKG: EKG: Sinus rhythm, normal axis, borderline QT prolongation, heart rate 87 bpm, no ST elevation or depression [] Heart Score: C/O Chest Pain: No Risk Factors: Risk Factors: DM, Current or recent (<one month) smoker, HTN, HLP, family history of CAD, obesity. Risk Scores: Score 0 - 3: 2.5% MACE over next 6 weeks - Discharge Home Score 4 - 6: 20.3% MACE over next 6 weeks - Admit for Clinical Observation Score 7 - 10: 72.7% MACE over next 6 weeks - Early Invasive Strategies Radiology/Procedures: Radiology/Procedures: [facility] [address] [place] [address] IMAGING REPORT Signed PATIENT: ELVIE CALVO ACCOUNT: [id number] : 1945 LOCATION: ER AGE: 76 SEX: F EXAM STATUS: REG ER ORD. PHYSICIAN: KIMBERLY PONCE MD REASON: Abdomen pain PROCEDURE: CT ABD PELV W/ IV CONTRST ONLY CT ABDOMEN+PELVIS W dated 08/17/2021 2:17 PM Indication:Reason: Abdomen pain / Spl. Instructions: IV omni 300 75 mls / History: Comparison: CT 01/21/2018. Technique: CT images were performed using infusion of 75 mm Omnipaque 300. One or more of the following individualized dose reduction techniques were utilized for this examination: 1. Automated exposure control 2. Adjustment of the mA and/or kV according to patient size 3. Use of iterative reconstruction technique Findings: The visualized lung bases are clear. The liver shows no apparent abnormality. There is a nonspecific rounded area of reduced contrast enhancement in the spleen. This measures about 1.5 cm. The spleen otherwise appears normal. Both kidneys enhance with contrast. There are small cysts. No solid mass or obstruction is seen. The adrenal glands are not enlarged. The pancreas appears normal. No retroperitoneal or mesenteric adenopathy is seen. There is no apparent abdominal soft tissue mass. Evaluation of the GI tract is somewhat limited by lack of contrast. There is suggestion of some thickening of the wall of the left colon. Images through the pelvis show no abnormality of the distal ureters or bladder. No pelvic or inguinal adenopathy is seen. There is no apparent pelvic mass or inflammatory process. A normal appendix is shown medial to the cecum. IMPRESSION: There are findings suggesting left-sided colitis. Correlation with GI symptoms is recommended. No other acute abnormality is seen. Electronically signed by: Caprice Coronado Jr., MD (08/17/2021 2:40 PM) [facility] DICTATED and SIGNED BY: CAPRICE CORONADO Jr, MD DATE: 08/17/21 [id number] [] Course & Med Decision Making: Course & Med Decision Making Pertinent Labs and Imaging studies reviewed. (See chart for details) Patient's labs were initially concerning for electrolyte abnormalities, the lab physician had drawn the labs in the upper extremity where normal saline was infusing distal to lab draw. Labs are redrawn and no significant Shweta abnormalities found. Patient has colitis on CT. Is feeling better after medications had 1 episode of emesis and no diarrhea in emergency department [] Dragon Disclaimer: Dragon Disclaimer: This electronic medical record was generated, in whole or in part, using a voice recognition dictation system. Departure Departure Impression: Primary Impression: Colitis Disposition: HOME / SELF CARE / HOMELESS Condition: STABLE Referrals: EDI SANDOVAL D.O. (PCP) Patient Instructions: Colitis Scripts Acetaminophen With Codeine (ACETAMINOPHEN-COD #3 TABLET) 1 Each Tablet 1 TAB PO PRN Q4HRS PRN for PAIN for 3 Days, #10 TAB Prov: KIMBERLY PONCE MD 08/17/21 Ciprofloxacin Hcl (CIPRO) 500 Mg Tablet 1 TAB PO BID for antibiotic for 5 Days, #10 TAB 0 Refills Prov: KIMBERLY PONCE MD 08/17/21 Ondansetron (ONDANSETRON ODT) 4 Mg Tab.rapdis 1 TAB PO PRN Q6-8HRS PRN for NAUSEA, #16 TAB Prov: KIMBERLY PONCE MD 08/17/21 KIMBERLY PONCE MD Aug 17, 2021 11:45
[2021-08-17 12:13] LABS: BILIRUBIN,URINE NEGATIVE (NEG); CLARITY,URINE CLEAR; COLOR,URINE YELLOW; NITRITE,URINE NEGATIVE (NEG); PROTEIN,URINE NEGATIVE (NEG-TRACE); UROBILINOGEN,URINE 0.2 mg/dL (0.2 mg/dL)
[2021-08-17 12:19] LABS: BACTERIA,URINE FEW /HPF (0-FEW); RBC,URINE OCC /HPF (0-2)
[2021-08-17] MEDS ORDERED: fentaNYL PF VIAL 100 MCG/2 ML VIAL IVP ONE (12:30)
[2021-08-17 12:55] VITALS: BP 210/136
[2021-08-17 13:28] LABS: BASO % 0 % (0-3); EOS % 0 % (0-3); HEMATOCRIT 30.3 % (36.0-47.0); LYMPH # 0.7 x10^3/uL (1.0-4.8); LYMPH % 13 % (24-48); MEAN CORPUSCULAR HEMOGLOBIN 27 pg (25-35); MEAN CORPUSCULAR HGB CONC 33 g/dL (31-37); MEAN CORPUSCULAR VOLUME 82 fL (79-100); MONO # 0.1 x10^3/uL (0.0-1.1); MONO % 2 % (0-9); NEUT # 4.3 x10^3/uL (1.8-7.7); NEUT % 84 % (31-73); PLATELET COUNT 201 x10^3/uL (140-400); RED CELL DISTRIBUTION WIDTH 15.2 % (11.5-14.5); WHITE BLOOD COUNT 5.2 x10^3/uL (4.0-11.0)
[2021-08-17] MEDS ORDERED: CALCIUM GLUCONATE 1,000 MG/10 ML VIAL. IVP ONE (14:15)
[2021-08-17] MEDS ORDERED: POTASSIUM CHLORIDE 20 MEQ TABLET.ER. PO ONE (14:15)
[2021-08-17] MEDS ORDERED: IOHEXOL 300 MG/ML 100ML VIAL. IV ONE (14:30)
[2021-08-17] MEDS ORDERED: POTASSIUM CHLORIDE 20MEQ 100 ML IV SCH (14:30)
[2021-08-17] MEDS ORDERED: CONTRAST GIVEN. MC PRN (14:30)
[2021-08-17] MEDS ORDERED: POTASSIUM & SODIUM PHOSPHATES PACKET. PO STA (14:34)
--- NOTE | 2021-08-17 14:43 | RAD ---
CT ABDOMEN+PELVIS W dated 08/17/2021 2:17 PM Indication:Reason: Abdomen pain / Spl. Instructions: IV omni 300 75 mls / History: Comparison: CT 01/21/2018. Technique: CT images were performed using infusion of 75 mm Omnipaque 300. One or more of the following individualized dose reduction techniques were utilized for this examinat ion: 1. Automated exposure control 2. Adjustment of the mA and/or kV according to patient size 3. Use of iterative reconstruction technique Findings: The visualized lung bases are clear. The liver shows no apparent abnormality. There is a nonspecific rounded area of reduced contrast enhancement in the spleen. This measures about 1.5 cm. The spleen ot herwise appears normal. Both kidneys enhance with contrast. There are small cysts. No solid mass or o bstruction is seen. The adrenal glands are not enlarged. The pancreas appears normal. No retroperiton eal or mesenteric adenopathy is seen. There is no apparent abdominal soft tissue mass. Evaluation of the GI tract is somewhat limited by lack of contrast. There is suggestion of some thickening of the w all of the left colon. Images through the pelvis show no abnormality of the distal ureters or bladder. No pelvic or inguinal adenopathy is seen. There is no apparent pelvic mass or inflammatory process. A normal appendix is s hown medial to the cecum. IMPRESSION: There are findings suggesting left-sided colitis. Correlation with GI symptoms is recommended. No oth er acute abnormality is seen. Electronically signed by: Tevin Coronado Jr., MD (08/17/2021 2:40 PM) [facility]
[2021-08-17] MEDS ORDERED: MAGNESIUM SULFATE 1GM 100 ML IV ONE (14:45)
[2021-08-17] MEDS ORDERED: DICYCLOMINE 20 MG/2 ML VIAL. IM ONE (15:15)
[2021-08-17 15:22] LABS: BASE EXCESS ABG -2 mmol/L (-3-3); HCO3 ABG 22 mmol/L (21-28); PCO2 ABG 37 mmHg (35-46); PO2 ABG 69 mmHg (65-108)
[2021-08-17 15:23] LABS: FIO2 ABG 21; SAT O2 ABG 93 % (92-99)
[2021-08-17 15:51] LABS: CALCIUM 9.1 mg/dL (8.5-10.1); CREATININE 0.8 mg/dL (0.6-1.0); GFR 84.4; POTASSIUM 3.3 mmol/L (3.5-5.1)
[2021-08-17 15:54] LABS: ALBUMIN 3.7 g/dL (3.4-5.0); ALBUMIN/GLOBULIN RATIO 0.8 (1.0-1.7); MAGNESIUM 1.8 mg/dL (1.8-2.4); PHOSPHORUS 2.2 mg/dL (2.6-4.7); TOTAL BILIRUBIN 0.5 mg/dL (0.2-1.0)
[2021-08-17 16:07] VITALS: BP 226/102
[2021-08-17 16:16] LABS: TOTAL PROTEIN 8.2 g/dL (6.4-8.2)
--- NOTE | 2021-08-17 16:38 | EKG ---
[facility] [address] [place] [id number] Test Date: 2021-08-17 Test Time: 14:44:23 Pat Name: ELVIE CALVO Department: Room: Gender: F [employer]: : 1945 Requested By: KIMBERLY PONCE Order Number: [id number] Reading MD: Chris Dawson MD Measurements Intervals [place] Rate: 87 P: IA: QRS: 90 QRSD: 94 T: 73 QT: 400 QTc: 488 Interpretive Statements PROBABLE SINUS TACHYCARDIA NON-SPECIFIC ST/T CHANGES Electronically Signed On 08-17-2021 20:20:03 MATERIAL MANAGER by Chris Dawson MD
[2021-08-17] MEDS ORDERED: ACET1TAB33 PO (16:45)
[2021-08-17] MEDS ORDERED: CIPR500T94 PO (16:45)
[2021-08-17] MEDS ORDERED: ONDA4TAB12 PO (16:45)
== END 2021-08-17 17:12 | disposition home or self-care (01) ==
LOC: ER 10:45
DX: K52.9 Noninfective gastroenteritis and colitis, unspecified (principal); I10 Essential (primary) hypertension; Z87.891 Personal history of nicotine dependence; Z91.040 Latex allergy status; Z88.8 Allergy status to other drugs, medicaments and biological substances
CPT/HCPCS: 36415; 36600; 74177; 80053; 81001; 82310; 82805; 83690; 83735; 84100; 85025; 93005; 96365; 96375; 99285; J0610; J2405; J3010; J3480; Q9967; 23650